=== PATIENT | female | born 1950 | race Caucasian/White ===

== ENCOUNTER 2017-06-09 03:24 | Emergency (ER) | payer SELFPAY ==
[~2017-06-09] VITALS: Ht 162.6 cm; Wt 70.0 kg
[~2017-06-09 03:24] MED LIST: ACYC-1 PO; BC FPOW12; CITA-48 PO; LEVO.025 PO; LISI2.5T3 PO; METHO500 PO; RANI150T PO; ZOCO40TA PO
[2017-06-09 03:43] VITALS: BP 137/72; PULSE 77; RESP 18; TEMP 97.7; O2SAT 98
== END 2017-06-09 04:15 | disposition left against medical advice (07) ==
LOC: NEPD 03:24
DX: Z53.21 Procedure and treatment not carried out due to patient leaving prior to being seen by health care provider (principal)
CPT/HCPCS: 99281

== ENCOUNTER 2017-10-21 18:18 | Inpatient (IN) ==
[2017-10-21] MEDS ORDERED: Sod Chloride 0.9% Inj 1,000 ML IV.SIG ONE (18:29)
--- NOTE | 2017-10-21 18:34 | ED ---
HPI General Chief complaint: GI Bleed Stated complaint: GI bleed Time Seen by Provider: 10/21/17 18:21 History of Present Illness HPI narrative: 67-year-old female presents via EMS for evaluation of GI bleed. She reports that yesterday evening she developed black tarry stools with dark red streaks. She is also had 2 episodes of coffee-ground emesis as well as lower abdominal pain. The pain is sharp, constant, no aggravating relieving factors. Symptoms are moderate. Today she developed some dizziness and lightheadedness. She denies any history of GI bleed in the past. She does report that she takes Goody powder a few times a day in order to help with chronic pain. She also reports that she drinks alcohol regularly, today she drank 2 beers. She has no other complaints at this time. Related Data Home Medications Medication Instructions Recorded Confirmed Unable to Obtain Home Meds 10/21/17 10/21/17 Allergies Allergy/AdvReac Type Severity Reaction Status Date / Time diazepam AdvReac Severe Hallucinati Unverified 10/21/17 18:24 ons CODIENE Allergy Unknown Hallucinati Uncoded 10/21/17 18:24 ons Review of Systems Except as stated in HPI: all other systems reviewed are negative PMFSH Social History Social History Substance History: No History of Abuse Second Hand Smoke Exposure: No Smoking Status: Current every day smoker Tobacco Type: Cigarettes How Often Do You Have a Drink Containing Alcohol: 4 or more times a week Recent Travel in [facility] within the Last 8 Weeks: No Recent Out of Country Travel within the Last 8 Weeks: No Exam Narrative Exam Narrative: GENERAL: Well-developed well-nourished female no acute distress SKIN: Warm and dry. HEAD: Atraumatic. Normocephalic. EYES: Pupils equal and round. No scleral icterus. No injection or drainage. ENT: No nasal bleeding or discharge. Mucous membranes pink and moist. NECK: Trachea midline. No JVD. CARDIOVASCULAR: Regular rate and rhythm. No murmur appreciated. RESPIRATORY: No accessory muscle use. Clear to auscultation. Breath sounds equal bilaterally. GASTROINTESTINAL: Abdomen soft, tender to palpation in lower quadrant without guarding. Rectal examination reveals black red streaked stool which is Hemoccult positive. MUSCULOSKELETAL: No obvious deformities. No clubbing. No cyanosis. No edema. NEUROLOGICAL: Awake and alert. No obvious cranial nerve deficits. Motor grossly within normal limits. Normal speech. Procedures Hemaprompt Stool Procedural Steps Taken: specimen placed in appropriate test area, developer placed on specimen and control areas and controls appropriately positive and negative Hemaprompt Stool Result: positive Course Initial Documented Vital Signs Temperature 98.4 F 10/21/17 18:25 Pulse Rate 90 10/21/17 18:25 Respiratory Rate 18 10/21/17 18:25 Blood Pressure 146/69 H 10/21/17 18:25 Pulse Oximetry 93 L 10/21/17 18:25 Last Documented Vital Signs Temperature 97.7 F 10/22/17 06:02 Pulse Rate 75 10/22/17 06:02 Respiratory Rate 18 10/22/17 06:02 Blood Pressure 119/68 10/22/17 06:02 Pulse Oximetry 95 10/22/17 06:02 Medical Decision Making TALHA Attestation TALHA supervised visit: Yes Attestation: I, Dr. Chandler, have reviewed the advance practice practitioner's documentation and am in agreement, met with the patient face to face, made the diagnosis, and the medical decision making was done by me. *My assessment and Findings: Patient's abdomen is nontender on examination and benign. Workup was consistent with an acute GI bleed likely secondary to her recent salicylates as her LFTs are not grossly abnormal and her INR is she has been given Protonix and admitted to Dr. Smith, hospitalist on-call for further workup and management. Her hemoglobin is 8 which is an acute drop but she is hemodynamically stable that she has not been given blood products at this time. MDM Narrative Medical decision making narrative: The patient was placed on ECG monitoring pulse oximetry. Lab work, CT of the abdomen and pelvis have been ordered. The patient will be given IV fluids, Protonix. Hemoglobin is 8.4. CT abdomen pelvis reveals no acute abnormalities. At this point in time the plan will be to admit the patient for further treatment of GI bleed. She is agreeable. Differential Diagnosis Differential Diagnosis: Upper GI bleed, lower GI bleed, AV malformation, peptic ulcer disease, perforation, malignancy, critical anemia Lab Data Result diagrams: 10/22/17 01:23 10/22/17 01:23 Lab Results 10/21/17 10/21/17 10/21/17 Range/Units 18:32 18:32 18:32 WBC 5.5 (4.0-11.0) th/mm3 RBC 2.82 L (4.00-5.30) mil/mm3 Hgb 8.4 L (11.6-15.3) gm/dL Hct 25.0 L (35.0-46.0) % MCV 88.7 (80.0-100.0) fL MCH 29.7 (27.0-34.0) pg MCHC 33.5 (32.0-36.0) % RDW 19.2 H (11.6-17.2) % Plt Count 314 (150-450) th/mm3 MPV 7.6 (7.0-11.0) fL Prelim Diff (Auto) Neut % (Auto) 71.1 H (16.0-70.0) % Lymph % (Auto) 17.0 (9.0-44.0) % Dickenson % (Auto) 8.1 H (0.0-8.0) % Eos % (Auto) 2.4 (0.0-4.0) % Baso % (Auto) 1.4 (0.0-2.0) % Neut # (Auto) 3.9 (1.8-7.7) th/mm3 Lymph # (Auto) 0.9 L (1.0-4.8) th/mm3 Dickenson # (Auto) 0.4 (0.0-0.9) th/mm3 Eos # (Auto) 0.1 (0.0-0.4) th/mm3 Baso # (Auto) 0.1 (0.0-0.2) th/mm3 WBC Differential . Diff Scan Differential Comment Auto diff final Ovalocytes (None) PT 10.5 (9.8-11.6) sec INR 1.0 Ratio APTT 20.5 L (24.3-30.1) sec Sodium 138 (136-145) meq/L Potassium 3.9 (3.5-5.1) meq/L Chloride 107 (98-107) meq/L Carbon Dioxide 21.2 (21.0-32.0) meq/L Anion Gap 10 (5-15) meq/L BUN 23 H (7-18) mg/dL Creatinine 0.72 (0.50-1.00) mg/dL Estimated GFR 81 L (>89) mL/min POC Glucose (68-110) mg/dl Random Glucose 77 (74-106) mg/dL Calcium 8.6 (8.5-10.1) mg/dL Total Bilirubin Less than 0.1 L (0.2-1.0) mg/dL AST 14 L (15-37) U/L ALT 10 (10-53) U/L Alkaline Phosphatase 70 (45-117) U/L Total Protein 6.2 L (6.4-8.2) g/dL Albumin 2.8 L (3.4-5.0) g/dL Lipase 88 (73-393) U/L Serum Alcohol 12 H (0-5) mg/dL Blood Type Blood Type Recheck Antibody Screen MTS Gel Crossmatch 10/21/17 10/21/17 10/21/17 Range/Units 18:32 21:02 23:49 WBC (4.0-11.0) th/mm3 RBC (4.00-5.30) mil/mm3 Hgb 6.9 L* (11.6-15.3) gm/dL Hct 21.2 L (35.0-46.0) % MCV (80.0-100.0) fL MCH (27.0-34.0) pg MCHC (32.0-36.0) % RDW (11.6-17.2) % Plt Count (150-450) th/mm3 MPV (7.0-11.0) fL Prelim Diff (Auto) Neut % (Auto) (16.0-70.0) % Lymph % (Auto) (9.0-44.0) % Dickenson % (Auto) (0.0-8.0) % Eos % (Auto) (0.0-4.0) % Baso % (Auto) (0.0-2.0) % Neut # (Auto) (1.8-7.7) th/mm3 Lymph # (Auto) (1.0-4.8) th/mm3 Dickenson # (Auto) (0.0-0.9) th/mm3 Eos # (Auto) (0.0-0.4) th/mm3 Baso # (Auto) (0.0-0.2) th/mm3 WBC Differential Diff Scan Differential Comment Ovalocytes (None) PT (9.8-11.6) sec INR Ratio APTT (24.3-30.1) sec Sodium (136-145) meq/L Potassium (3.5-5.1) meq/L Chloride (98-107) meq/L Carbon Dioxide (21.0-32.0) meq/L Anion Gap (5-15) meq/L BUN (7-18) mg/dL Creatinine (0.50-1.00) mg/dL Estimated GFR (>89) mL/min POC Glucose 98 (68-110) mg/dl Random Glucose (74-106) mg/dL Calcium (8.5-10.1) mg/dL Total Bilirubin (0.2-1.0) mg/dL AST (15-37) U/L ALT (10-53) U/L Alkaline Phosphatase (45-117) U/L Total Protein (6.4-8.2) g/dL Albumin (3.4-5.0) g/dL Lipase (73-393) U/L Serum Alcohol (0-5) mg/dL Blood Type A Positive Blood Type Recheck Required Antibody Screen Negative MTS Gel Crossmatch 10/22/17 10/22/17 10/22/17 Range/Units 00:19 01:23 01:23 WBC 5.0 (4.0-11.0) th/mm3 RBC 2.33 L (4.00-5.30) mil/mm3 Hgb 6.8 L* (11.6-15.3) gm/dL Hct 20.6 L* (35.0-46.0) % MCV 88.6 (80.0-100.0) fL MCH 29.3 (27.0-34.0) pg MCHC 33.1 (32.0-36.0) % RDW 19.4 H (11.6-17.2) % Plt Count 268 (150-450) th/mm3 MPV 7.2 (7.0-11.0) fL Prelim Diff (Auto) Slide review pending Neut % (Auto) 61.8 (16.0-70.0) % Lymph % (Auto) 23.5 (9.0-44.0) % Dickenson % (Auto) 10.6 H (0.0-8.0) % Eos % (Auto) 3.1 (0.0-4.0) % Baso % (Auto) 1.0 (0.0-2.0) % Neut # (Auto) 3.1 (1.8-7.7) th/mm3 Lymph # (Auto) 1.2 (1.0-4.8) th/mm3 Dickenson # (Auto) 0.5 (0.0-0.9) th/mm3 Eos # (Auto) 0.2 (0.0-0.4) th/mm3 Baso # (Auto) 0.1 (0.0-0.2) th/mm3 WBC Differential . Diff Scan Auto diff confirmed Differential Comment . Ovalocytes 1+ H (None) PT (9.8-11.6) sec INR Ratio APTT (24.3-30.1) sec Sodium 141 (136-145) meq/L Potassium 4.1 (3.5-5.1) meq/L Chloride 112 H (98-107) meq/L Carbon Dioxide 22.9 (21.0-32.0) meq/L Anion Gap 6 (5-15) meq/L BUN 17 (7-18) mg/dL Creatinine 0.56 (0.50-1.00) mg/dL Estimated GFR Greater than 89 (>89) mL/min POC Glucose (68-110) mg/dl Random Glucose 74 (74-106) mg/dL Calcium 7.9 L (8.5-10.1) mg/dL Total Bilirubin 0.2 (0.2-1.0) mg/dL AST 11 L (15-37) U/L ALT 8 L (10-53) U/L Alkaline Phosphatase 60 (45-117) U/L Total Protein 5.1 L D (6.4-8.2) g/dL Albumin 2.4 L (3.4-5.0) g/dL Lipase (73-393) U/L Serum Alcohol (0-5) mg/dL Blood Type Blood Type Recheck Antibody Screen MTS Gel Crossmatch See Detail Imaging Data Radiologist's impression: Abdomen/Pelvis CT 10/21/17 18:29 CONCLUSION: 1. No obstruction, inflammatory changes or other acute abnormality seen within the abdomen or pelvis. 2. 11 mm nonspecific but statistically most likely benign hypodensity of the left hepatic lobe. If attempted definitive characterization is desired clinically, nonemergent MRI of the abdomen with and without contrast is suggested. 3. Dense atherosclerosis of the abdominal aorta. No aneurysm. 4. Chronic appearing severe compression fracture of the L1 vertebra. Discharge Plan Discharge Disposition Patient Disposition: 30 Still Patient Discharge Condition Condition: Stable Discharge Details Diagnosis: Acute GI bleeding Physicians Team ED Provider: Daysi Chandler ED Midlevel Provider: Damon Lomeli Primary Care Provider: UNKNOWN, Attending Provider: Jeff Dunlap Status ED Status: Left Department Discharge Information Discharge Date/Time: 10/21/17 23:53
[2017-10-21 18:52] LABS: Baso # (Auto) 0.1 th/mm3 (0.0-0.2); Baso % (Auto) 1.4 % (0.0-2.0); Eos # (Auto) 0.1 th/mm3 (0.0-0.4); Eos % (Auto) 2.4 % (0.0-4.0); Hemoglobin 8.4 gm/dL (11.6-15.3); Lymph # (Auto) 0.9 th/mm3 (1.0-4.8); Mean Corpuscular HGB Conc 33.5 % (32.0-36.0); Mean Corpuscular Hemoglobin 29.7 pg (27.0-34.0); Mean Corpuscular Volume 88.7 fL (80.0-100.0); Mean Platelet Volume 7.6 fL (7.0-11.0); Mono # (Auto) 0.4 th/mm3 (0.0-0.9); Mono % (Auto) 8.1 % (0.0-8.0); Neut # (Auto) 3.9 th/mm3 (1.8-7.7); Neut % (Auto) 71.1 % (16.0-70.0); Platelet Count 314 th/mm3 (150-450); Red Blood Count 2.82 mil/mm3 (4.00-5.30); Red Cell Distribution Width 19.2 % (11.6-17.2); White Blood Count 5.5 th/mm3 (4.0-11.0)
[2017-10-21] MEDS ORDERED: Pantoprazole Inj 80 MG in Sodium Chlor 0.9% Inj 100 ML IV.CONT SCH (19:00)
[2017-10-21 19:05] LABS: Activated Partial Thrombo Time 20.5 sec (24.3-30.1); Prothrombin Time 10.5 sec (9.8-11.6)
[2017-10-21 19:10] LABS: Alanine Aminotransferase 10 U/L (10-53); Alkaline Phosphatase 70 U/L (45-117); Total Protein 6.2 g/dL (6.4-8.2)
[2017-10-21 19:17] LABS: Albumin 2.8 g/dL (3.4-5.0); Anion Gap 10 meq/L (5-15); Aspartate Aminotransferase 14 U/L (15-37); Blood Urea Nitrogen 23 mg/dL (7-18); Calcium 8.6 mg/dL (8.5-10.1); Carbon Dioxide 21.2 meq/L (21.0-32.0); Chloride 107 meq/L (98-107); Glomerular Filtration Rate 81 mL/min (>89); Glucose,Random 77 mg/dL (74-106); Lipase 88 U/L (73-393); Potassium 3.9 meq/L (3.5-5.1); Sodium 138 meq/L (136-145)
[2017-10-21] MEDS ORDERED: Pantoprazole Inj 80 MG in Sodium Chlor 0.9% Inj 50 ML IV.SIG ONE (19:20)
[2017-10-21 19:23] LABS: Alcohol 12 mg/dL (0-5)
--- NOTE | 2017-10-21 19:52 | CT ---
EXAM DATE: 10/21/2017 7:44 PM EDT AGE/SEX: 67 years / Female INDICATIONS: Low abdominal pain with blood in stool and coffee ground emesis. CLINICAL DATA: This is the patient's initial encounter. Patient reports that signs and symptoms have been present for 2 days and indicates a pain score of 7/10. MEDICAL/SURGICAL HISTORY: Chronic obstructive pulmonary disease. Hypertension. Hypothyroidism . None. ORAL CONTRAST: No oral contrast ingested. RADIATION DOSE: 6.53 CTDI (mGy) COMPARISON: [facility] – [place] [facility] AP/LAT/SW (3VW), 05/22/2011. . TECHNIQUE: Multiple contiguous axial images were obtained through the abdomen and pelvis following b olus infusion of 70 ml Omnipaque 350 (iohexol) nonionic water-soluble contrast as a single exam dos e. No oral contrast ingested. Using automated exposure control and adjustment of the mA and/or kV ac cording to patient size, radiation dose was kept as low as reasonably achievable to obtain optimal di agnostic quality images. DICOM format image data is available electronically for review and comparis on. FINDINGS: There is an 11 mm hepatic hypodensity, lateral segment of the left hepatic lobe. Liver otherwise appe ars normal. CT appearance of the gallbladder within normal limits. Spleen, pancreas, adrenal glands and kidneys are all within normal limits. No obstruction or acute inflammatory changes are seen of the gastrointestinal tract. No free fluid or free air. No lymphadenopathy. There is dense atherosclerosis of the abdominal aorta. No aneurysm. Visualized lung bases are free of infiltrate and effusion. No acute bony abnormality demonstrated. Degenerative changes are seen of the spine. There is a chroni c appearing L1 compression fracture. CONCLUSION: 1. No obstruction, inflammatory changes or other acute abnormality seen within the abdomen or pelvis . 2. 11 mm nonspecific but statistically most likely benign hypodensity of the left hepatic lobe. If a ttempted definitive characterization is desired clinically, nonemergent MRI of the abdomen with and w ithout contrast is suggested. 3. Dense atherosclerosis of the abdominal aorta. No aneurysm. 4. Chronic appearing severe compression fracture of the L1 vertebra. Electronically signed by: Levy Peralta MD 10/21/2017 7:51 PM EDT
[2017-10-21] MEDS ORDERED: Haloperidol Inj 5 MG/ML Ampul IV.PUSH PRN (20:11)
[2017-10-21] MEDS ORDERED: LORazepam 1 MG Tablet PO PRN (20:11)
[2017-10-21] MEDS ORDERED: Bisacodyl 10 MG Supp RECTAL PRN (20:13)
--- NOTE | 2017-10-21 20:15 | P.HPIM ---
History of Present Illness Primary Care Physician: UNKNOWN History of Present Illness: This is a 67-year-old female with a PMH of Alcohol Abuse and Tobacco Abuse who presented to the ER with complaints of dark stool x2 days in addition to few episodes of coffee-brown emesis. Also reports c/o abdominal pain, lower abdomen , intermittent, cramping, 8/10, non-radiating. Has been taking Goody powder several times a day for c/o pain. No h/o GI Bleed in the past. Admits to daily drinking 6pck Joseph Light daily, had 2 beers today. On arrival, BP 146/69, HR 83, O2 sat 100% on RA, Afebrile. Hemoglobin 8.4, no previous labs for comparison. INR 1.0. Chemistry essentially unremarkable except for BUN 23. Alcohol 12. Hemoccult + on exam. S/p Protonix gtt. CT Abd/Pelvis w/ no acute abnormality, 11mm nonspecific lesion left hepatic lobe likely benign, nonemergent MRI abdomen, chronic severe compression fx L1. - Diagnosis (1) GI bleed (2) Anemia (3) Alcohol abuse Inpatient Certification: I certify that the inpatient services were ordered in accordance with Medicare regulations governing the order. This includes certification that hospital inpatient services are reasonable and necessary and in the case of services not specified as inpatient-only under 42 CFR 419.22(n), that they are appropriately provided as inpatient services in accordance to with the 2-midnight benchmark under 43 CFR 412.3(e) Estimated Total Length of Stay (Days): 2 Plans for Post Hospital Care: Not yet determined Review of Systems PAST FAMILY HISTORY: Reviewed. No h/o DM or CAD All other systems reviewed negative except as stated in HPI PMFSH - History History Provided By: Patient - Medical History Medical History: Medical History (Last Updated 10/21/17 @ 18:28 by Delisa Tabares RN) Alcoholism COPD (chronic obstructive pulmonary disease) Hypertension Hypothyroid - Tobacco History Second Hand Smoke Exposure: No Tobacco Use In Past 30 Days: Yes Smoking Status: Current every day smoker Tobacco Type: Cigarettes - Alcohol History How Often Do You Have a Drink Containing Alcohol: 4 or more times a week - Substance Use History Substance History: No History of Abuse - Travel History Recent Travel in the [place] Within the Last 8 Weeks: No Recent Travel Out of the Country Within the Last 8 Weeks: No - Immunization History Tetanus Immunization: <5 Years Hx Influenza Vaccine This Season: No Medications and Allergies Active Medications: Active Medications Pantoprazole Sodium 80 mg/ (Sodium Chloride) 100 mls @ 10 mls/hr IV.CONT Q10H LILA Sodium Chloride (Ns Flush) 2 ml IV.FLUSH PRN PRN PRN Reason: FLUSH AFTER USING IV ACCESS Allergies Allergy/AdvReac Type Severity Reaction Status Date / Time diazepam AdvReac Severe Hallucinati Unverified 10/21/17 18:24 ons CODIENE Allergy Unknown Hallucinati Uncoded 10/21/17 18:24 ons Home Medications Medication Instructions Recorded Confirmed Type Unable to Obtain Home Meds 10/21/17 10/21/17 History Exam Vital signs: Vital Signs 10/21/17 18:25 10/21/17 18:32 10/21/17 19:28 Temperature 98.4 F 98.4 F Pulse Rate 90 83 86 Respiratory Rate 18 16 16 Blood Pressure 146/69 H 146/69 H 116/77 Pulse Oximetry 93 L 100 100 Intake & Output 10/21/17 10/21/17 10/22/17 06:59 18:59 06:59 Weight 65.771 kg Narrative: PE: GENERAL: Middle-aged female in no acute distress. HEENT: PERRLA, EOMI. No scleral icterus or conjunctival pallor. No lid lag or facial droop. CARDIOVASCULAR: Regular rate and rhythm. No obvious murmurs to auscultation. No chest tenderness to palpation. RESPIRATORY: No obvious rhonchi or wheezing. Clear to auscultation. Breath sounds equal bilaterally. GASTROINTESTINAL: Abdomen soft, lower abdominal tenderness to palpation, nondistended. BS normal. MUSCULOSKELETAL: Extremities without clubbing, cyanosis, or edema. No obvious deformities. NEUROLOGICAL: Awake, alert and oriented x4. No focal neurologic deficits. Moving both upper and lower extremities spontaneously. Results - Labs CBC & Chem 7: 10/21/17 18:32 10/21/17 18:32 Labs: Short CBC 10/21/17 Range/Units 18:32 WBC 5.5 (4.0-11.0) th/mm3 Hgb 8.4 L (11.6-15.3) gm/dL Hct 25.0 L (35.0-46.0) % Plt Count 314 (150-450) th/mm3 BMP 10/21/17 18:32 Sodium 138 Potassium 3.9 Chloride 107 Carbon Dioxide 21.2 BUN 23 H Creatinine 0.72 Calcium 8.6 Liver Function 10/21/17 Range/Units 18:32 Total Bilirubin Less than 0.1 L (0.2-1.0) mg/dL AST 14 L (15-37) U/L ALT 10 (10-53) U/L Alkaline Phosphatase 70 (45-117) U/L Albumin 2.8 L (3.4-5.0) g/dL - Imaging Impressions Abdomen/Pelvis CT 10/21/17 18:29 CONCLUSION: 1. No obstruction, inflammatory changes or other acute abnormality seen within the abdomen or pelvis. 2. 11 mm nonspecific but statistically most likely benign hypodensity of the left hepatic lobe. If attempted definitive characterization is desired clinically, nonemergent MRI of the abdomen with and without contrast is suggested. 3. Dense atherosclerosis of the abdominal aorta. No aneurysm. 4. Chronic appearing severe compression fracture of the L1 vertebra. Caprini VTE Risk Assessment Caprini VTE Risk Assessment: No/Low Risk (score <= 1) VTE Pharmacological Exception Reason: Active bleeding Caprini Risk Assessment Model: Point Value = 1 Point Value = 2 Point Value = 3 Point Value = 5 Age 41-60 Minor surgery BMI > 25 kg/m2 Swollen legs Varicose veins or History of unexplained or recurrent spontaneous Oral contraceptives or hormone replacement Sepsis (< 1 month) Serious lung disease, including pneumonia (< 1 month) Abnormal pulmonary function Acute myocardial infarction Congestive heart failure (< 1 month) History of inflammatory bowel disease Medical patient at bed rest Age 61-74 Arthroscopic surgery Major open surgery (> 45 min) Laparoscopic surgery (> 45 min) Malignancy Confined to bed (> 72 hours) Immobilizing plaster cast Central venous access Age >= 75 History of VTE Family history of VTE Factor V Leiden Prothrombin [id number] Lupus anticoagulant Anticardiolipin antibodies Elevated serum homocysteine Heparin-induced thrombocytopenia Other congenital or acquired thrombophilia Stroke (< 1 month) Elective arthroplasty Hip, pelvis, or leg fracture Acute spinal cord injury (< 1 month) Prophylaxis Regimen: Total Risk Factor Score Risk Level Prophylaxis Regimen 0-1 Low Early ambulation 2 Moderate Order ONE of the following: *Sequential Compression Device (SCD) *Heparin 5000 units SQ BID 3-4 Higher Order ONE of the following medications: *Heparin 5000 units SQ TID *Enoxaparin/Lovenox 40 mg SQ daily (WT < 150 kg, CrCl > 30 mL/min) *Enoxaparin/Lovenox 30 mg SQ daily (WT < 150 kg, CrCl > 10-29 mL/min) *Enoxaparin/Lovenox 30 mg SQ BID (WT < 150 kg, CrCl > 30 mL/min) AND/OR *Sequential Compression Device (SCD) 5 or more Highest Order ONE of the following medications: *Heparin 5000 units SQ TID (Preferred with Epidurals) *Enoxaparin/Lovenox 40 mg SQ daily (WT < 150 kg, CrCl > 30 mL/min) *Enoxaparin/Lovenox 30 mg SQ daily (WT < 150 kg, CrCl > 10-29 mL/min) *Enoxaparin/Lovenox 30 mg SQ BID (WT < 150 kg, CrCl > 30 mL/min) AND *Sequential Compression Device (SCD) Assessment and Plan - Assessment (1) GI bleed Code(s): K92.2 - Gastrointestinal hemorrhage, unspecified Status: Acute (2) Anemia Code(s): D64.9 - Anemia, unspecified Status: Acute (3) Alcohol abuse Code(s): F10.10 - Alcohol abuse, uncomplicated Status: Acute - Plan A/P: 1. GI Bleed: black tarry stool in addition to hematemesis, likely due to combination of alcohol abuse and chronic/daily NSAID use. Protonix gtt, Consult GI for further evaluation/intervention. CT Abd/Pelvis w/ no acute findings, nonspecific liver lesion w/ recommendation for nonemergent MRI and chronic L1 compression fracture, images reviewed. 2. Anemia: secondary to above, Hgb 8.9, no previous labs for comparison however presumably significantly decreased from baseline, in light of multiple episodes of hematemesis and dark stool will monitor closely. Type & Screen. Repeat Hgb/Hct, transfuse as needed for worsening anemia. 3. Alcohol Abuse: Daily. Chronic. Drinks 6pck Joseph Light daily, more during football season. High risk for withdrawal, Seizure Precautions, MVT/Thiamine/ Folate replacement, CIWA 4. DVT Prophylaxis: Pharmacologic contraindication due to GI Bleed 5. Social work for d/c planning as needed 6. Case discussed w/ ER physician at length, labs/records/imaging reviewed by me
[2017-10-21] MEDS: Pantoprazole Inj 80 MG in Sodium Chlor 0.9% Inj 100 ML IV.CONT SCH (20:20)
[2017-10-21] MEDS: Senna/Docusate Sodium 8.6/50 MG Tablet PO SCH (20:28)
[2017-10-21] MEDS: Sod Chloride 0.9% Inj 1,000 ML IV.CONT SCH (20:28)
[2017-10-21] MEDS: Morphine Inj 4 MG/ML Vial IV.PUSH PRN (22:01)
[2017-10-22] LABS: Hematocrit 21.2 % (35.0-46.0); Hemoglobin 6.9 gm/dL (11.6-15.3)
[2017-10-22] MEDS ORDERED: Sodium Chlor 0.9% Inj 250 ML IV.SIG SCH (01:00)
[2017-10-22 01:35] LABS: Baso # (Auto) 0.1 th/mm3 (0.0-0.2); Eos # (Auto) 0.2 th/mm3 (0.0-0.4); Eos % (Auto) 3.1 % (0.0-4.0); Hemoglobin 6.8 gm/dL (11.6-15.3); Lymph # (Auto) 1.2 th/mm3 (1.0-4.8); Lymph % (Auto) 23.5 % (9.0-44.0); Mean Corpuscular HGB Conc 33.1 % (32.0-36.0); Mean Corpuscular Hemoglobin 29.3 pg (27.0-34.0); Mean Corpuscular Volume 88.6 fL (80.0-100.0); Mean Platelet Volume 7.2 fL (7.0-11.0); Mono # (Auto) 0.5 th/mm3 (0.0-0.9); Mono % (Auto) 10.6 % (0.0-8.0); Neut # (Auto) 3.1 th/mm3 (1.8-7.7); Neut % (Auto) 61.8 % (16.0-70.0); Platelet Count 268 th/mm3 (150-450); Red Blood Count 2.33 mil/mm3 (4.00-5.30); Red Cell Distribution Width 19.4 % (11.6-17.2)
[2017-10-22 01:41] LABS: Hematocrit 20.6 % (35.0-46.0)
[2017-10-22 01:48] LABS: Alanine Aminotransferase 8 U/L (10-53); Albumin 2.4 g/dL (3.4-5.0); Anion Gap 6 meq/L (5-15); Aspartate Aminotransferase 11 U/L (15-37); Blood Urea Nitrogen 17 mg/dL (7-18); Calcium 7.9 mg/dL (8.5-10.1); Carbon Dioxide 22.9 meq/L (21.0-32.0); Chloride 112 meq/L (98-107); Glomerular Filtration Rate Greater Than 89 mL/min (>89); Glucose,Random 74 mg/dL (74-106); Potassium 4.1 meq/L (3.5-5.1); Sodium 141 meq/L (136-145)
[2017-10-22 01:50] LABS: Alkaline Phosphatase 60 U/L (45-117); Total Protein 5.1 g/dL (6.4-8.2)
[2017-10-22 02:08] LABS: Ovalocytes 1+
[2017-10-22] MEDS: Pantoprazole Inj 80 MG in Sodium Chlor 0.9% Inj 100 ML IV.CONT SCH (06:12)
[2017-10-22] MEDS: Sod Chloride 0.9% Inj 1,000 ML IV.CONT SCH ×2 (06:12→20:45)
--- NOTE | 2017-10-22 09:57 | P.PN ---
Subjective Interval history: F/u GIB. No further bleeding. States she has generalized pain and sciatica. Aware not to take NSAIDs. Physical Exam Vital signs: Vital Signs 10/21/17 18:25 10/21/17 18:32 10/21/17 19:28 Temperature 98.4 F 98.4 F Pulse Rate 90 83 86 Respiratory Rate 18 16 16 Blood Pressure 146/69 H 146/69 H 116/77 Pulse Oximetry 93 L 100 100 10/21/17 20:13 10/21/17 20:25 10/21/17 21:03 Temperature Pulse Rate 79 85 Respiratory Rate 16 Blood Pressure 150/88 H Pulse Oximetry 100 98 10/21/17 21:35 10/22/17 02:51 10/22/17 04:00 Temperature 98.1 F 97.8 F Pulse Rate 87 78 79 Respiratory Rate 18 18 18 Blood Pressure 159/70 H 109/54 L 104/57 L Pulse Oximetry 100 96 10/22/17 06:02 10/22/17 08:00 Temperature 97.7 F 98.4 F Pulse Rate 75 78 Respiratory Rate 18 19 Blood Pressure 119/68 118/57 L Pulse Oximetry 95 95 Intake & Output 10/21/17 10/22/17 10/22/17 18:59 06:59 18:59 Intake Total 1100 / 1100 0 / 0 Output Total 300 / 300 Balance 800 / 800 0 / 0 Weight 65.771 kg 64.2 kg Intake: IV 1100 / 1100 Protonix Inj 80 MG In NS Inj 100 / 100 100 ML @ 10 mls/hr IV.CONT Q10H [facility] Rx#:[id number] NS Inj 1,000 ML @ 100 mls/hr IV 1000 / 1000 .CONT .Q10H [facility] Rx#:[id number] Intake (Blood Product) Amt 0 / 0 0 / 0 Rbc As-3 Leukoreduced Unit 0 / 0 0 / 0 [id number] Output: Urine 300 / 300 Other: # Voids 1 Narrative: GENERAL: Middle-aged female in no acute distress. CARDIOVASCULAR: Regular rate and rhythm. No obvious murmurs to auscultation. No chest tenderness to palpation. RESPIRATORY: No obvious rhonchi or wheezing. Clear to auscultation. Breath sounds equal bilaterally. GASTROINTESTINAL: Abdomen soft, lower abdominal tenderness to palpation, nondistended. BS normal. MUSCULOSKELETAL: Extremities without clubbing, cyanosis, or edema. No obvious deformities. NEUROLOGICAL: Awake, alert and oriented x4. No focal neurologic deficits. Moving both upper and lower extremities spontaneously. Results - Labs CBC & Chem 7: 10/22/17 13:55 10/22/17 13:55 Laboratory Results - last 24 hr 10/21/17 10/21/17 10/21/17 18:32 18:32 18:32 WBC 5.5 RBC 2.82 L Hgb 8.4 L Hct 25.0 L MCV 88.7 MCH 29.7 MCHC 33.5 RDW 19.2 H Plt Count 314 MPV 7.6 Prelim Diff (Auto) Neut % (Auto) 71.1 H Lymph % (Auto) 17.0 [place] % (Auto) 8.1 H Eos % (Auto) 2.4 Baso % (Auto) 1.4 Neut # (Auto) 3.9 Lymph # (Auto) 0.9 L [place] # (Auto) 0.4 Eos # (Auto) 0.1 Baso # (Auto) 0.1 WBC Differential . Diff Scan Differential Comment Auto diff final Ovalocytes PT 10.5 INR 1.0 APTT 20.5 L Sodium 138 Potassium 3.9 Chloride 107 Carbon Dioxide 21.2 Anion Gap 10 BUN 23 H Creatinine 0.72 Estimated GFR 81 L POC Glucose Random Glucose 77 Calcium 8.6 Total Bilirubin Less than 0.1 L AST 14 L ALT 10 Alkaline Phosphatase 70 Total Protein 6.2 L Albumin 2.8 L Lipase 88 Serum Alcohol 12 H Blood Type Blood Type Recheck Antibody Screen MTS Gel Crossmatch 10/21/17 10/21/17 10/21/17 18:32 21:02 23:49 WBC RBC Hgb 6.9 L* Hct 21.2 L MCV MCH MCHC RDW Plt Count MPV Prelim Diff (Auto) Neut % (Auto) Lymph % (Auto) [place] % (Auto) Eos % (Auto) Baso % (Auto) Neut # (Auto) Lymph # (Auto) [place] # (Auto) Eos # (Auto) Baso # (Auto) WBC Differential Diff Scan Differential Comment Ovalocytes PT INR APTT Sodium Potassium Chloride Carbon Dioxide Anion Gap BUN Creatinine Estimated GFR POC Glucose 98 Random Glucose Calcium Total Bilirubin AST ALT Alkaline Phosphatase Total Protein Albumin Lipase Serum Alcohol Blood Type A Positive Blood Type Recheck Required Antibody Screen Negative MTS Gel Crossmatch 0810/22/17 10/22/17 00:19 01:23 01:23 WBC 5.0 RBC 2.33 L Hgb 6.8 L* Hct 20.6 L* MCV 88.6 MCH 29.3 MCHC 33.1 RDW 19.4 H Plt Count 268 MPV 7.2 Prelim Diff (Auto) Slide review pending Neut % (Auto) 61.8 Lymph % (Auto) 23.5 [place] % (Auto) 10.6 H Eos % (Auto) 3.1 Baso % (Auto) 1.0 Neut # (Auto) 3.1 Lymph # (Auto) 1.2 [place] # (Auto) 0.5 Eos # (Auto) 0.2 Baso # (Auto) 0.1 WBC Differential . Diff Scan Auto diff confirmed Differential Comment . Ovalocytes 1+ H PT INR APTT Sodium 141 Potassium 4.1 Chloride 112 H Carbon Dioxide 22.9 Anion Gap 6 BUN 17 Creatinine 0.56 Estimated GFR Greater than 89 POC Glucose Random Glucose 74 Calcium 7.9 L Total Bilirubin 0.2 AST 11 L ALT 8 L Alkaline Phosphatase 60 Total Protein 5.1 L D Albumin 2.4 L Lipase Serum Alcohol Blood Type Blood Type Recheck Antibody Screen MTS Gel Crossmatch See Detail - Imaging Impressions Abdomen/Pelvis CT 10/21/17 18:29 CONCLUSION: 1. No obstruction, inflammatory changes or other acute abnormality seen within the abdomen or pelvis. 2. 11 mm nonspecific but statistically most likely benign hypodensity of the left hepatic lobe. If attempted definitive characterization is desired clinically, nonemergent MRI of the abdomen with and without contrast is suggested. 3. Dense atherosclerosis of the abdominal aorta. No aneurysm. 4. Chronic appearing severe compression fracture of the L1 vertebra. - Procedures EGD Assessment and Plan - Assessment (1) GI bleed Code(s): K92.2 - Gastrointestinal hemorrhage, unspecified Status: Acute (2) Anemia Code(s): D64.9 - Anemia, unspecified Status: Acute (3) Alcohol abuse Code(s): F10.10 - Alcohol abuse, uncomplicated Status: Acute - Plan 1. GI Bleed: black tarry stool in addition to hematemesis, likely due to combination of alcohol abuse and chronic/daily NSAID use. Protonix gtt, Consult GI for further evaluation/intervention. CT Abd/Pelvis w/ no acute findings, nonspecific liver lesion w/ recommendation for nonemergent MRI and chronic L1 compression fracture, images reviewed. 2. Anemia: secondary to above, Hgb 8.9, no previous labs for comparison however presumably significantly decreased from baseline, in light of multiple episodes of hematemesis and dark stool will monitor closely. Type & Screen. Repeat Hgb/Hct, transfuse as needed for worsening anemia. 3. Alcohol Abuse: Daily. Chronic. Drinks 6pck [place] daily, more during football season. High risk for withdrawal, Seizure Precautions, MVT/Thiamine/ Folate replacement, CIWA 4. DVT Prophylaxis: Pharmacologic contraindication due to GI Bleed
--- NOTE | 2017-10-22 10:13 | P.CONGI ---
History of Present Illness Consult date: 10/22/17 Consult reason: Upper GIB Chief complaint: GI bleed History of Present Illness: This is a 67 yo F with medical history significant for ETOH abuse who presented to the ER yesterday with complaints of abdominal pain, coffee ground emesis and black, tarry stools. Pt states symptoms began two nights ago. Pain is located in her lower abdomen, constant, described as dull sharp and aching. States nothing makes the pain better or worse. Also complaining of multiple black, tarry stools since two nights ago but has not had any since admission. Reports one episode of coffee ground emesis. Denies history of GIB. Has never had EGD or colonoscopy. Admits to daily alcohol, drinks a 6 pack of beer daily. Denies smoking and illicit drug use. Of note, pt was was previously following pain management but stopped this months ago and is now drinking alcohol and taking Goody powder daily for months. <Cherie Veliz - Last Filed: 10/22/17 10:04> Review of Systems Gastrointestinal: Reports abdominal pain, Reports black, tarry stools, Reports loose stools, Reports nausea, Reports vomiting Comments: coffee ground emesis <Cherie Veliz - Last Filed: 10/22/17 10:04> PMFSH - History History Provided By: Patient, Medical Record - Medical History Medical History: Medical History (Last Reviewed 10/21/17 @ 21:55 by Kirti Luu RN) Alcoholism COPD (chronic obstructive pulmonary disease) Hypertension Hypothyroid - Tobacco History Second Hand Smoke Exposure: No Tobacco Use In Past 30 Days: Yes Smoking Status: Current every day smoker Tobacco Type: Cigarettes - Alcohol History How Often Do You Have a Drink Containing Alcohol: 4 or more times a week - Substance Use History Substance History: No History of Abuse - Travel History Recent Travel in the [place] Within the Last 8 Weeks: No Recent Travel Out of the Country Within the Last 8 Weeks: No - Immunization History Tetanus Immunization: <5 Years Hx Influenza Vaccine This Season: No <Cherie Veliz - Last Filed: 10/22/17 10:04> - Medical History Medical History: Medical History (Last Reviewed 10/21/17 @ 21:55 by Kirti Luu RN) Alcoholism COPD (chronic obstructive pulmonary disease) Hypertension Hypothyroid <Breanna Jennings - Last Filed: 10/22/17 12:23> Medications and Allergies Active Medications: Active Medications Al Hydroxide/Mg Hydroxide (Milk Of Magnesia Liq) 30 ml PO Q12H PRN PRN Reason: Mild Constipation Albuterol (Duoneb Neb (Prn)) 1 ampul NEB Q4HR NEB PRN PRN Reason: SOB/WHEEZING Bisacodyl (Dulcolax Supp) 10 mg RECTAL DAILY PRN PRN Reason: SEVERE CONSITIPATION Flumazenil (Romazecon Inj) 0.2 mg IV.PUSH Q1M PRN PRN Reason: OVERSEDATION Folic Acid (Folic Acid) 1 mg PO DAILY [facility] Stop: 10/27/17 08:59 Haloperidol Lactate (Haldol Inj) 1 mg IV.PUSH Q15M PRN PRN Reason: for severe agitation Pantoprazole Sodium 80 mg/ (Sodium Chloride) 100 mls @ 10 mls/hr IV.CONT Q10H [facility] Last Admin: 10/22/17 06:12 Dose: 10 mls/hr Sodium Chloride (Ns Inj) 1,000 mls @ 100 mls/hr IV.CONT .Q10H [facility] Last Admin: 10/22/17 06:12 Dose: 100 mls/hr Sodium Chloride (Ns Inj) 250 mls @ 15 mls/hr IV.SIG ONCE [facility] Stop: 10/22/17 17:39 Lactulose (Lactulose Liq) 30 ml PO DAILY PRN PRN Reason: SEVERE CONSITIPATION Lorazepam (Ativan) 1 mg PO Q4H PRN PRN Reason: for CIWA 8-10 Lorazepam (Ativan) 2 mg PO Q2H PRN PRN Reason: for CIWA 11-14 Lorazepam (Ativan Inj) 2 mg IV.PUSH Q2H PRN PRN Reason: for CIWA 11-14 Lorazepam (Ativan Inj) 2 mg IV.PUSH Q1H PRN PRN Reason: for CIWA 15-20 Lorazepam (Ativan Inj) 2 mg IV.PUSH Q15M PRN PRN Reason: for CIWA > 20 Lorazepam (Ativan Inj) 1 mg IV.PUSH Q4H PRN PRN Reason: for CIWA 8-10 Morphine Sulfate (Morphine Inj) 2 mg IV.PUSH Q4H PRN PRN Reason: PAIN 6-10 Last Admin: 10/21/17 22:01 Dose: 2 mg Multivitamins/Minerals (Theragran-M) 1 tab PO DAILY [facility] Stop: 10/27/17 08:59 Ondansetron HCl (Zofran Inj) 4 mg IV.PUSH Q6H PRN PRN Reason: NAUSEA OR VOMITING Senna/Docusate Sodium (Fernanda-Colace) 1 tab PO BID [facility] Last Admin: 10/21/17 20:28 Dose: Not Given Sennosides (Senokot) 17.2 mg PO Q12H PRN PRN Reason: Moderate Constipation Sodium Chloride (Ns Flush) 2 ml IV.FLUSH PRN PRN PRN Reason: FLUSH AFTER USING IV ACCESS Thiamine HCl (Vitamin B1) 100 mg PO DAILY [facility] <Cherie Veliz - Last Filed: 10/22/17 10:04> Active Medications: Active Medications Al Hydroxide/Mg Hydroxide (Milk Of Magnesia Liq) 30 ml PO Q12H PRN PRN Reason: Mild Constipation Albuterol (Duoneb Neb (Prn)) 1 ampul NEB Q4HR NEB PRN PRN Reason: SOB/WHEEZING Bisacodyl (Dulcolax Supp) 10 mg RECTAL DAILY PRN PRN Reason: SEVERE CONSITIPATION Flumazenil (Romazecon Inj) 0.2 mg IV.PUSH Q1M PRN PRN Reason: OVERSEDATION Folic Acid (Folic Acid) 1 mg PO DAILY [facility] Stop: 10/27/17 08:59 Haloperidol Lactate (Haldol Inj) 1 mg IV.PUSH Q15M PRN PRN Reason: for severe agitation Pantoprazole Sodium 80 mg/ (Sodium Chloride) 100 mls @ 10 mls/hr IV.CONT Q10H [facility] Last Admin: 10/22/17 06:12 Dose: 10 mls/hr Sodium Chloride (Ns Inj) 1,000 mls @ 100 mls/hr IV.CONT .Q10H [facility] Last Admin: 10/22/17 06:12 Dose: 100 mls/hr Sodium Chloride (Ns Inj) 250 mls @ 15 mls/hr IV.SIG ONCE [facility] Stop: 10/22/17 17:39 Lactulose (Lactulose Liq) 30 ml PO DAILY PRN PRN Reason: SEVERE CONSITIPATION Lorazepam (Ativan) 1 mg PO Q4H PRN PRN Reason: for CIWA 8-10 Lorazepam (Ativan) 2 mg PO Q2H PRN PRN Reason: for CIWA 11-14 Lorazepam (Ativan Inj) 2 mg IV.PUSH Q2H PRN PRN Reason: for CIWA 11-14 Lorazepam (Ativan Inj) 2 mg IV.PUSH Q1H PRN PRN Reason: for CIWA 15-20 Lorazepam (Ativan Inj) 2 mg IV.PUSH Q15M PRN PRN Reason: for CIWA > 20 Lorazepam (Ativan Inj) 1 mg IV.PUSH Q4H PRN PRN Reason: for CIWA 8-10 Morphine Sulfate (Morphine Inj) 2 mg IV.PUSH Q4H PRN PRN Reason: PAIN 6-10 Last Admin: 10/21/17 22:01 Dose: 2 mg Multivitamins/Minerals (Theragran-M) 1 tab PO DAILY [facility] Stop: 10/27/17 08:59 Ondansetron HCl (Zofran Inj) 4 mg IV.PUSH Q6H PRN PRN Reason: NAUSEA OR VOMITING Senna/Docusate Sodium (Fernanda-Colace) 1 tab PO BID [facility] Last Admin: 10/21/17 20:28 Dose: Not Given Sennosides (Senokot) 17.2 mg PO Q12H PRN PRN Reason: Moderate Constipation Sodium Chloride (Ns Flush) 2 ml IV.FLUSH PRN PRN PRN Reason: FLUSH AFTER USING IV ACCESS Thiamine HCl (Vitamin B1) 100 mg PO DAILY [facility] <Breanna Jennings - Last Filed: 10/22/17 12:23> Allergies Allergy/AdvReac Type Severity Reaction Status Date / Time diazepam AdvReac Severe Hallucinati Unverified 10/21/17 18:24 ons CODIENE Allergy Unknown Hallucinati Uncoded 10/21/17 18:24 ons Home Medications Medication Instructions Recorded Confirmed Type Unable to Obtain Home Meds 10/21/17 10/21/17 History Exam Vital signs: Vital Signs 10/21/17 18:25 10/21/17 18:32 10/21/17 19:28 Temperature 98.4 F 98.4 F Pulse Rate 90 83 86 Respiratory Rate 18 16 16 Blood Pressure 146/69 H 146/69 H 116/77 Pulse Oximetry 93 L 100 100 10/21/17 20:13 08/05/18 20:25 10/21/17 21:03 Temperature Pulse Rate 79 85 Respiratory Rate 16 Blood Pressure 150/88 H Pulse Oximetry 100 98 10/21/17 21:35 10/22/17 02:51 10/22/17 04:00 Temperature 98.1 F 97.8 F Pulse Rate 87 78 79 Respiratory Rate 18 18 18 Blood Pressure 159/70 H 109/54 L 104/57 L Pulse Oximetry 100 96 10/22/17 06:02 10/22/17 08:00 Temperature 97.7 F 98.4 F Pulse Rate 75 78 Respiratory Rate 18 19 Blood Pressure 119/68 118/57 L Pulse Oximetry 95 95 Intake & Output 10/21/17 10/22/17 10/22/17 18:59 06:59 18:59 Intake Total 1100 / 1100 0 / 0 Output Total 300 / 300 Balance 800 / 800 0 / 0 Weight 65.771 kg 64.2 kg Intake: IV 1100 / 1100 Protonix Inj 80 MG In NS Inj 100 / 100 100 ML @ 10 mls/hr IV.CONT Q10H [facility] Rx#:[id number] NS Inj 1,000 ML @ 100 mls/hr IV 1000 / 1000 .CONT .Q10H [facility] Rx#:[id number] Intake (Blood Product) Amt 0 / 0 0 / 0 Rbc As-3 Leukoreduced Unit 0 / 0 0 / 0 [id number] Output: Urine 300 / 300 Other: # Voids 1 - Constitutional no acute distress - Routine HEENT Exam Head: Present: normocephalic, atraumatic - Routine Respiratory Exam Absent: accessory muscle use - Routine Abdominal Exam Present: soft, normoactive bowel sounds, tenderness Comments: lower abdominal tenderness - Routine Skin Exam Present: dry, warm - Routine Neurological Exam Present: alert, oriented X3 <Cherie Veliz - Last Filed: 10/22/17 10:04> Vital signs: Vital Signs 10/21/17 18:25 10/21/17 18:32 10/21/17 19:28 Temperature 98.4 F 98.4 F Pulse Rate 90 83 86 Respiratory Rate 18 16 16 Blood Pressure 146/69 H 146/69 H 116/77 Pulse Oximetry 93 L 100 100 10/21/17 20:13 10/21/17 20:25 10/21/17 21:03 Temperature Pulse Rate 79 85 Respiratory Rate 16 Blood Pressure 150/88 H Pulse Oximetry 100 98 10/21/17 21:35 10/22/17 02:51 10/22/17 04:00 Temperature 98.1 F 97.8 F Pulse Rate 87 78 79 Respiratory Rate 18 18 18 Blood Pressure 159/70 H 109/54 L 104/57 L Pulse Oximetry 100 96 10/22/17 06:02 10/22/17 08:00 Temperature 97.7 F 98.4 F Pulse Rate 75 78 Respiratory Rate 18 19 Blood Pressure 119/68 118/57 L Pulse Oximetry 95 95 Intake & Output 10/21/17 10/22/17 10/22/17 18:59 06:59 18:59 Intake Total 1100 / 1100 1050 / 1050 Output Total 300 / 300 Balance 800 / 800 1050 / 1050 Weight 65.771 kg 64.2 kg Intake: IV 1100 / 1100 1050 / 1050 Protonix Inj 80 MG In NS Inj 100 / 100 100 ML @ 10 mls/hr IV.CONT Q10H [facility] Rx#:[id number] NS Inj 1,000 ML @ 100 mls/hr IV 1000 / 1000 .CONT .Q10H [facility] Rx#:[id number] Intake (Blood Product) Amt 0 / 0 0 / 0 Rbc As-3 Leukoreduced Unit 0 / 0 0 / 0 [id number] Output: Urine 300 / 300 Other: # Voids 1 <Breanna Jennings - Last Filed: 10/22/17 12:23> Results - Labs CBC & Chem 7: 10/22/17 01:23 10/22/17 01:23 Labs: Laboratory Results - last 24 hr 10/21/17 10/21/17 10/21/17 18:32 18:32 18:32 WBC 5.5 RBC 2.82 L Hgb 8.4 L Hct 25.0 L MCV 88.7 MCH 29.7 MCHC 33.5 RDW 19.2 H Plt Count 314 MPV 7.6 Prelim Diff (Auto) Neut % (Auto) 71.1 H Lymph % (Auto) 17.0 [place] % (Auto) 8.1 H Eos % (Auto) 2.4 Baso % (Auto) 1.4 Neut # (Auto) 3.9 Lymph # (Auto) 0.9 L [place] # (Auto) 0.4 Eos # (Auto) 0.1 Baso # (Auto) 0.1 WBC Differential . Diff Scan Differential Comment Auto diff final Ovalocytes PT 10.5 INR 1.0 APTT 20.5 L Sodium 138 Potassium 3.9 Chloride 107 Carbon Dioxide 21.2 Anion Gap 10 BUN 23 H Creatinine 0.72 Estimated GFR 81 L POC Glucose Random Glucose 77 Calcium 8.6 Total Bilirubin Less than 0.1 L AST 14 L ALT 10 Alkaline Phosphatase 70 Total Protein 6.2 L Albumin 2.8 L Lipase 88 Serum Alcohol 12 H Blood Type Blood Type Recheck Antibody Screen MTS Gel Crossmatch 10/21/17 10/21/17 10/21/17 18:32 21:02 23:49 WBC RBC Hgb 6.9 L* Hct 21.2 L MCV MCH MCHC RDW Plt Count MPV Prelim Diff (Auto) Neut % (Auto) Lymph % (Auto) [place] % (Auto) Eos % (Auto) Baso % (Auto) Neut # (Auto) Lymph # (Auto) [place] # (Auto) Eos # (Auto) Baso # (Auto) WBC Differential Diff Scan Differential Comment Ovalocytes PT INR APTT Sodium Potassium Chloride Carbon Dioxide Anion Gap BUN Creatinine Estimated GFR POC Glucose 98 Random Glucose Calcium Total Bilirubin AST ALT Alkaline Phosphatase Total Protein Albumin Lipase Serum Alcohol Blood Type A Positive Blood Type Recheck Required Antibody Screen Negative MTS Gel Crossmatch 10/22/17 10/22/17 10/22/17 00:19 01:23 01:23 WBC 5.0 RBC 2.33 L Hgb 6.8 L* Hct 20.6 L* MCV 88.6 MCH 29.3 MCHC 33.1 RDW 19.4 H Plt Count 268 MPV 7.2 Prelim Diff (Auto) Slide review pending Neut % (Auto) 61.8 Lymph % (Auto) 23.5 [place] % (Auto) 10.6 H Eos % (Auto) 3.1 Baso % (Auto) 1.0 Neut # (Auto) 3.1 Lymph # (Auto) 1.2 [place] # (Auto) 0.5 Eos # (Auto) 0.2 Baso # (Auto) 0.1 WBC Differential . Diff Scan Auto diff confirmed Differential Comment . Ovalocytes 1+ H PT INR APTT Sodium 141 Potassium 4.1 Chloride 112 H Carbon Dioxide 22.9 Anion Gap 6 BUN 17 Creatinine 0.56 Estimated GFR Greater than 89 POC Glucose Random Glucose 74 Calcium 7.9 L Total Bilirubin 0.2 AST 11 L ALT 8 L Alkaline Phosphatase 60 Total Protein 5.1 L D Albumin 2.4 L Lipase Serum Alcohol Blood Type Blood Type Recheck Antibody Screen MTS Gel Crossmatch See Detail - Imaging Impressions Abdomen/Pelvis CT 10/21/17 18:29 CONCLUSION: 1. No obstruction, inflammatory changes or other acute abnormality seen within the abdomen or pelvis. 2. 11 mm nonspecific but statistically most likely benign hypodensity of the left hepatic lobe. If attempted definitive characterization is desired clinically, nonemergent MRI of the abdomen with and without contrast is suggested. 3. Dense atherosclerosis of the abdominal aorta. No aneurysm. 4. Chronic appearing severe compression fracture of the L1 vertebra. <Cherie Veliz - Last Filed: 10/22/17 10:04> - Labs CBC & Chem 7: 10/22/17 01:23 10/22/17 01:23 Labs: Laboratory Results - last 24 hr 10/21/17 10/21/17 10/21/17 18:32 18:32 18:32 WBC 5.5 RBC 2.82 L Hgb 8.4 L Hct 25.0 L MCV 88.7 MCH 29.7 MCHC 33.5 RDW 19.2 H Plt Count 314 MPV 7.6 Prelim Diff (Auto) Neut % (Auto) 71.1 H Lymph % (Auto) 17.0 [place] % (Auto) 8.1 H Eos % (Auto) 2.4 Baso % (Auto) 1.4 Neut # (Auto) 3.9 Lymph # (Auto) 0.9 L [place] # (Auto) 0.4 Eos # (Auto) 0.1 Baso # (Auto) 0.1 WBC Differential . Diff Scan Differential Comment Auto diff final Ovalocytes PT 10.5 INR 1.0 APTT 20.5 L Sodium 138 Potassium 3.9 Chloride 107 Carbon Dioxide 21.2 Anion Gap 10 BUN 23 H Creatinine 0.72 Estimated GFR 81 L POC Glucose Random Glucose 77 Calcium 8.6 Total Bilirubin Less than 0.1 L AST 14 L ALT 10 Alkaline Phosphatase 70 Total Protein 6.2 L Albumin 2.8 L Lipase 88 Serum Alcohol 12 H Blood Type Blood Type Recheck Antibody Screen MTS Gel Crossmatch 10/21/17 10/21/17 10/21/17 18:32 21:02 23:49 WBC RBC Hgb 6.9 L* Hct 21.2 L MCV MCH MCHC RDW Plt Count MPV Prelim Diff (Auto) Neut % (Auto) Lymph % (Auto) [place] % (Auto) Eos % (Auto) Baso % (Auto) Neut # (Auto) Lymph # (Auto) [place] # (Auto) Eos # (Auto) Baso # (Auto) WBC Differential Diff Scan Differential Comment Ovalocytes PT INR APTT Sodium Potassium Chloride Carbon Dioxide Anion Gap BUN Creatinine Estimated GFR POC Glucose 98 Random Glucose Calcium Total Bilirubin AST ALT Alkaline Phosphatase Total Protein Albumin Lipase Serum Alcohol Blood Type A Positive Blood Type Recheck Required Antibody Screen Negative MTS Gel Crossmatch 10/22/17 10/22/17 10/22/17 00:19 01:23 01:23 WBC 5.0 RBC 2.33 L Hgb 6.8 L* Hct 20.6 L* MCV 88.6 MCH 29.3 MCHC 33.1 RDW 19.4 H Plt Count 268 MPV 7.2 Prelim Diff (Auto) Slide review pending Neut % (Auto) 61.8 Lymph % (Auto) 23.5 [place] % (Auto) 10.6 H Eos % (Auto) 3.1 Baso % (Auto) 1.0 Neut # (Auto) 3.1 Lymph # (Auto) 1.2 [place] # (Auto) 0.5 Eos # (Auto) 0.2 Baso # (Auto) 0.1 WBC Differential . Diff Scan Auto diff confirmed Differential Comment . Ovalocytes 1+ H PT INR APTT Sodium 141 Potassium 4.1 Chloride 112 H Carbon Dioxide 22.9 Anion Gap 6 BUN 17 Creatinine 0.56 Estimated GFR Greater than 89 POC Glucose Random Glucose 74 Calcium 7.9 L Total Bilirubin 0.2 AST 11 L ALT 8 L Alkaline Phosphatase 60 Total Protein 5.1 L D Albumin 2.4 L Lipase Serum Alcohol Blood Type Blood Type Recheck Antibody Screen MTS Gel Crossmatch See Detail - Imaging Impressions Abdomen/Pelvis CT 10/21/17 18:29 CONCLUSION: 1. No obstruction, inflammatory changes or other acute abnormality seen within the abdomen or pelvis. 2. 11 mm nonspecific but statistically most likely benign hypodensity of the left hepatic lobe. If attempted definitive characterization is desired clinically, nonemergent MRI of the abdomen with and without contrast is suggested. 3. Dense atherosclerosis of the abdominal aorta. No aneurysm. 4. Chronic appearing severe compression fracture of the L1 vertebra. <Breanna Jennings - Last Filed: 10/22/17 12:23> Assessment and Plan - Plan Assessment: - Upper GIB with ETOH abuse and daily Goody powder use H/H currently 6.8/20.6 Pt reports symptoms began two night ago with multiple black, tarry stools and one episode of coffee ground emesis. Drinks 6 pack of beer a day. Takes Goody Powder daily, previous followed by pain management but stopped this months ago. Denies history of GIB. Plan: EGD with possible band ligation Obtain consent NPO Protonix gtt Monitor H/H ETOH withdraw protocol Further recommendations to follow Pt has been seen and examined by myself and Dr. Jennings and this note is written on her behalf <Cherie Veliz - Last Filed: 10/22/17 10:04> - Plan seen, examined agree with above avoid NSAIDS, ETOH colonoscopy if agrees before discharge-at this time refusing risk, benefits of egd discussed transfuse prn <Breanna Jennings - Last Filed: 10/22/17 12:23>
[2017-10-22] MEDS ORDERED: Lidocaine PF 1% Inj 5 ML Syringe INFILTRATN ONE (12:00)
--- NOTE | 2017-10-22 12:29 | GIPROC ---
[employer] [address] [facility]. [facility] [place], [address] EGD PROCEDURE REPORT EXAM DATE: 10/22/2017 PATIENT NAME: Apoorva Cisneros MR #: [id number] BIRTHDATE: 1950 ATTENDING: Breanna Jennings MD ORDER #: [id number] BAG END SEWER: Sonia Graves and Justice Morgan STATUS: inpatient INDICATIONS: The patient is a 67 yr old female here for an EGD due to anemia, gi bleeding PROCEDURE PERFORMED: EGD w/ biopsy MEDICATIONS: None and Per Anesthesia. TOPICAL ANESTHETIC: none CONSENT: The patient understands the risks and benefits of the procedure and understands that these risks include, but are not limited to: sedation, allergic reaction, infection, perforation and/or bleeding. Alternative means of evaluation and treatment include, among others: physical exam, x-rays, and/or surgical intervention. The patient elects to proceed with this endoscopic procedure. medical equipment was checked for proper function. Hand hygiene and appropriate measures for infection prevention was taken. After the risks, benefits and alternatives of the procedure were thoroughly explained, Informed consent was verified, confirmed and timeout was successfully executed by the treatment team. The patient was anesthetized with topical anesthesia and the Phobiousax [id number] endoscope was introduced through the mouth and advanced to the second portion of the duodenum. Retroflexed views revealed a hiatal hernia The gastroscope was then slowly withdrawn and removed. Duodenitis second portion-biopsy gastritis antrum-biopsy/multiple superficial ulcers duodenla bulb ulcers, clean base-4 mm pyloric channel ulcer-1 cm-clean base esophagitis distal esophagus -biopsy. ADVERSE EVENTS: There were no complications. IMPRESSIONS: 1. Duodenitis second portion-biopsy gastritis antrum-biopsy/multiple superficial ulcers duodenla bulb ulcers, clean base-4 mm pyloric channel ulcer-1 cm-clean base esophagitis distal esophagus -biopsy 2. Retroflexed views revealed a hiatal hernia RECOMMENDATIONS: 1. Await biopsy results. Biopsy results will not be ready for 7-10 days. If you don't hear from us in two weeks, call our office for biopsy results. 2. Anti-reflux regimen 3. Continue PPI 4. Avoid NSAIDS 5. Full liquid diet advance as tolerated colonoscopy if agrees-at this time refusing PATIENT CONDITION: stable DISPOSITION: Inpatient REPEAT EXAM: Return 6 weeks EGD Breanna Jennings MD eSigned: Breanna Jennings MD 10/22/2017 12:29 PM cc: PATIENT NAME: Apoorva Cisneros MR#: [id number]
[2017-10-22] MEDS: Folic Acid 1 MG Tablet PO SCH (13:26)
[2017-10-22] MEDS: Senna/Docusate Sodium 8.6/50 MG Tablet PO SCH ×2 (13:26→20:37)
[2017-10-22] MEDS: Multivitamin/Minerals Therapeutic Tablet PO SCH (13:26)
[2017-10-22 14:32] LABS: Baso # (Auto) 0.1 th/mm3 (0.0-0.2); Baso % (Auto) 1.3 % (0.0-2.0); Eos # (Auto) 0.2 th/mm3 (0.0-0.4); Eos % (Auto) 4.6 % (0.0-4.0); Hematocrit 26.2 % (35.0-46.0); Hemoglobin 8.5 gm/dL (11.6-15.3); Lymph # (Auto) 0.8 th/mm3 (1.0-4.8); Lymph % (Auto) 20.7 % (9.0-44.0); Mean Corpuscular HGB Conc 32.3 % (32.0-36.0); Mean Corpuscular Hemoglobin 27.4 pg (27.0-34.0); Mean Corpuscular Volume 84.8 fL (80.0-100.0); Mean Platelet Volume 7.4 fL (7.0-11.0); Mono # (Auto) 0.3 th/mm3 (0.0-0.9); Mono % (Auto) 7.3 % (0.0-8.0); Neut # (Auto) 2.6 th/mm3 (1.8-7.7); Neut % (Auto) 66.1 % (16.0-70.0); Platelet Count 290 th/mm3 (150-450); Red Blood Count 3.09 mil/mm3 (4.00-5.30); Red Cell Distribution Width 23.5 % (11.6-17.2)
[2017-10-22 14:56] LABS: Anion Gap 6 meq/L (5-15); Blood Urea Nitrogen 10 mg/dL (7-18); Calcium 8.3 mg/dL (8.5-10.1); Carbon Dioxide 24.1 meq/L (21.0-32.0); Chloride 109 meq/L (98-107); Glomerular Filtration Rate Greater Than 89 mL/min (>89); Glucose,Random 111 mg/dL (74-106); Phosphorus 2.7 mg/dL (2.5-4.9); Potassium 3.4 meq/L (3.5-5.1); Sodium 139 meq/L (136-145)
[2017-10-22] MEDS ORDERED: Potassium Chloride 10 MEQ ER Capsule PO ONE (17:00)
[2017-10-22] MEDS: Morphine Inj 4 MG/ML Vial IV.PUSH PRN (17:31)
[2017-10-23] MEDS: Morphine Inj 4 MG/ML Vial IV.PUSH PRN (04:02)
--- NOTE | 2017-10-23 07:31 | ECG ---
Date Performed: 10/22/2017 Time Performed: 10:36:24 PTAGE: 67 years EKG: Sinus rhythm NORMAL ECG PREVIOUS TRACING : 06/19/2012 06.52 DOCTOR: Denisse Su Interpretating Date/Time 10/23/2017 07:29:36
[2017-10-23] MEDS: Multivitamin/Minerals Therapeutic Tablet PO SCH (08:46)
[2017-10-23] MEDS: Senna/Docusate Sodium 8.6/50 MG Tablet PO SCH (08:46)
[2017-10-23] MEDS: Folic Acid 1 MG Tablet PO SCH (08:46)
[2017-10-23 09:32] LABS: Baso % (Auto) 1.3 % (0.0-2.0); Eos # (Auto) 0.2 th/mm3 (0.0-0.4); Eos % (Auto) 6.4 % (0.0-4.0); Hemoglobin 8.5 gm/dL (11.6-15.3); Lymph # (Auto) 0.7 th/mm3 (1.0-4.8); Lymph % (Auto) 20.2 % (9.0-44.0); Mean Corpuscular HGB Conc 32.7 % (32.0-36.0); Mean Corpuscular Hemoglobin 27.8 pg (27.0-34.0); Mean Corpuscular Volume 85.3 fL (80.0-100.0); Mean Platelet Volume 7.3 fL (7.0-11.0); Mono # (Auto) 0.5 th/mm3 (0.0-0.9); Mono % (Auto) 12.6 % (0.0-8.0); Neut # (Auto) 2.2 th/mm3 (1.8-7.7); Neut % (Auto) 59.5 % (16.0-70.0); Platelet Count 287 th/mm3 (150-450); Red Blood Count 3.05 mil/mm3 (4.00-5.30); White Blood Count 3.7 th/mm3 (4.0-11.0)
--- NOTE | 2017-10-23 09:57 | P.PNGI ---
Subjective Interval history: Pt sleeping, awakened for my exam. Denies any nausea or vomiting. Tolerating liquid diet. Denies BM since EGD. Complaining of continued lower abdominal pain , although no tenderness on exam. Discussed with her recommendation for colonoscopy, states she does not want a colonoscopy or mammogram. These are tests she is not willing to do. <Cherie Veliz - Last Filed: 10/23/17 09:51> Physical Exam Vital signs: Vital Signs 10/22/17 12:43 10/22/17 13:26 10/22/17 14:37 Temperature 98.3 F 98.0 F Pulse Rate 74 72 Respiratory Rate 20 18 Blood Pressure 130/75 130/68 Pulse Oximetry 100 99 92 L 10/22/17 16:00 10/22/17 20:00 10/23/17 00:00 Temperature 98.0 F 98.2 F 98 F Pulse Rate 77 74 73 Respiratory Rate 19 19 19 Blood Pressure 113/62 127/62 129/60 Pulse Oximetry 96 95 95 10/23/17 04:00 10/23/17 08:00 Temperature 98.1 F 97.8 F Pulse Rate 79 75 Respiratory Rate 18 18 Blood Pressure 121/58 L 121/56 L Pulse Oximetry 94 L 94 L Intake & Output 10/22/17 10/23/17 10/23/17 18:59 06:59 18:59 Intake Total 2520 / 2520 Balance 2520 / 2520 Intake: IV 2049 / 2049 NS Inj 1,000 ML @ 60 mls/hr IV. 1000 / 1000 CONT .[id number] [facility] Rx#:[id number] Oral 420 / 420 Anesthesia Amount 50 / 50 Intake (Blood Product) Amt 0 / 0 Rbc As-3 Leukoreduced Unit 0 / 0 [id number] Other: # Voids 4 # Bowel Movements 0 - Constitutional no acute distress - Routine HEENT Exam Head: Present: normocephalic, atraumatic - Routine Respiratory Exam Absent: accessory muscle use - Routine Cardiovascular Exam Present: RRR - Routine Abdominal Exam Present: soft, normoactive bowel sounds. Absent: tenderness, distended - Routine Skin Exam Present: dry, warm - Routine Neurological Exam Present: alert, oriented X3 <Cherie Veliz - Last Filed: 10/23/17 09:51> Vital signs: Vital Signs 10/22/17 16:00 10/22/17 20:00 10/23/17 00:00 Temperature 98.0 F 98.2 F 98 F Pulse Rate 77 74 73 Respiratory Rate 19 19 19 Blood Pressure 113/62 127/62 129/60 Pulse Oximetry 96 95 95 10/23/17 04:00 10/23/17 08:00 10/23/17 11:06 Temperature 98.1 F 97.8 F Pulse Rate 79 75 Respiratory Rate 18 18 Blood Pressure 121/58 L 121/56 L Pulse Oximetry 94 L 94 L 95 10/23/17 12:00 Temperature 97.9 F Pulse Rate 77 Respiratory Rate 18 Blood Pressure 118/51 L Pulse Oximetry 95 Intake & Output 10/22/17 10/23/17 10/23/17 18:59 06:59 18:59 Intake Total 2520 / 2520 Balance 2520 / 2520 Intake: IV 2049 / 2049 NS Inj 1,000 ML @ 60 mls/hr IV. 1000 / 1000 CONT .[id number] [facility] Rx#:[id number] Oral 420 / 420 Anesthesia Amount 50 / 50 Intake (Blood Product) Amt 0 / 0 Rbc As-3 Leukoreduced Unit 0 / 0 [id number] Other: # Voids 4 # Bowel Movements 0 <Breanna Jennings - Last Filed: 10/23/17 15:25> Results - Labs CBC & Chem 7: 10/23/17 08:00 10/22/17 13:55 Laboratory Results - last 24 hr 10/22/17 10/22/17 10/23/17 13:55 13:55 08:00 WBC 4.0 3.7 L RBC 3.09 L 3.05 L Hgb 8.5 L 8.5 L Hct 26.2 L 26.0 L MCV 84.8 D 85.3 MCH 27.4 27.8 MCHC 32.3 32.7 RDW 23.5 H D 23.0 H Plt Count 290 287 MPV 7.4 7.3 Neut % (Auto) 66.1 59.5 Lymph % (Auto) 20.7 20.2 [place] % (Auto) 7.3 12.6 H Eos % (Auto) 4.6 H 6.4 H Baso % (Auto) 1.3 1.3 Neut # (Auto) 2.6 2.2 Lymph # (Auto) 0.8 L 0.7 L [place] # (Auto) 0.3 0.5 Eos # (Auto) 0.2 0.2 Baso # (Auto) 0.1 0.0 WBC Differential . . Differential Comment Auto diff final Auto diff final Sodium 139 Potassium 3.4 L Chloride 109 H Carbon Dioxide 24.1 Anion Gap 6 BUN 10 Creatinine 0.56 Estimated GFR Greater than 89 Random Glucose 111 H Calcium 8.3 L Phosphorus 2.7 Magnesium 2.0 - Procedures EGD <Cherie Veliz - Last Filed: 10/23/17 09:51> - Labs CBC & Chem 7: 10/23/17 08:00 10/23/17 08:00 Laboratory Results - last 24 hr 10/23/17 10/23/17 08:00 08:00 WBC 3.7 L RBC 3.05 L Hgb 8.5 L Hct 26.0 L MCV 85.3 MCH 27.8 MCHC 32.7 RDW 23.0 H Plt Count 287 MPV 7.3 Neut % (Auto) 59.5 Lymph % (Auto) 20.2 [place] % (Auto) 12.6 H Eos % (Auto) 6.4 H Baso % (Auto) 1.3 Neut # (Auto) 2.2 Lymph # (Auto) 0.7 L [place] # (Auto) 0.5 Eos # (Auto) 0.2 Baso # (Auto) 0.0 WBC Differential . Differential Comment Auto diff final Sodium 141 Potassium 3.8 Chloride 109 H Carbon Dioxide 23.7 Anion Gap 8 BUN 5 L Creatinine 0.44 L Estimated GFR Greater than 89 Random Glucose 71 L Calcium 8.5 Phosphorus 3.4 Magnesium 1.9 <Breanna Jennings - Last Filed: 10/23/17 15:25> Assessment and Plan - Plan Assessment: - Upper GIB with ETOH abuse and daily Goody powder use H/H currently 6.8/20.6 Pt reports symptoms began two night ago with multiple black, tarry stools and one episode of coffee ground emesis. Drinks 6 pack of beer a day. Takes Goody Powder daily, previous followed by pain management but stopped this months ago. Denies history of GIB. (10/23) Pt sleeping, awakened for my exam. Denies nausea, vomiting. No BM since EGD. Complaining of continued lower abdominal pain, no tenderness on exam. Discussed with her recommendations for colonoscopy, she has never had one before. States she will not get a colonoscopy or a mammogram. S/P 1 U PRBCs hgb from 6.8 to 8.5 and has remained stable overnight. Plan: Avoid NSAIDs Stop drinking ETOH Repeat EGD in 6 weeks If agreeable can have colonoscopy at this time Currently refusing colonoscopy Advance diet Protonix Our service will sign off Have pt follow up with GI after DC Pt has been seen and examined by myself and Dr. Jennings and this note is written on her behalf <Cherie Veliz - Last Filed: 10/23/17 09:51> - Plan agree with above <Breanna Jennings - Last Filed: 10/23/17 15:25>
[2017-10-23 09:59] LABS: Anion Gap 8 meq/L (5-15); Blood Urea Nitrogen 5 mg/dL (7-18); Calcium 8.5 mg/dL (8.5-10.1); Carbon Dioxide 23.7 meq/L (21.0-32.0); Chloride 109 meq/L (98-107); Glomerular Filtration Rate Greater Than 89 mL/min (>89); Glucose,Random 71 mg/dL (74-106); Magnesium 1.9 mg/dL (1.5-2.5); Potassium 3.8 meq/L (3.5-5.1); Sodium 141 meq/L (136-145)
[2017-10-23 10:00] LABS: Phosphorus 3.4 mg/dL (2.5-4.9)
--- NOTE | 2017-10-23 14:49 | P.PN ---
Subjective Interval history: Follow-up GI bleed. No further bleeding. Patient aware of EGD results continues to refuse colonoscopy. Aware she needs to stop drinking alcohol and taking aspirin. Physical Exam Vital signs: Vital Signs 10/22/17 16:00 10/22/17 20:00 10/23/17 00:00 Temperature 98.0 F 98.2 F 98 F Pulse Rate 77 74 73 Respiratory Rate 19 19 19 Blood Pressure 113/62 127/62 129/60 Pulse Oximetry 96 95 95 10/23/17 04:00 10/23/17 08:00 10/23/17 11:06 Temperature 98.1 F 97.8 F Pulse Rate 79 75 Respiratory Rate 18 18 Blood Pressure 121/58 L 121/56 L Pulse Oximetry 94 L 94 L 95 10/23/17 12:00 Temperature 97.9 F Pulse Rate 77 Respiratory Rate 18 Blood Pressure 118/51 L Pulse Oximetry 95 Intake & Output 10/22/17 10/23/17 10/23/17 18:59 06:59 18:59 Intake Total 2520 / 2520 Balance 2520 / 2520 Intake: IV 2049 / 2049 NS Inj 1,000 ML @ 60 mls/hr IV. 1000 / 1000 CONT .[id number] [facility] Rx#:[id number] Oral 420 / 420 Anesthesia Amount 50 / 50 Intake (Blood Product) Amt 0 / 0 Rbc As-3 Leukoreduced Unit 0 / 0 [id number] Other: # Voids 4 # Bowel Movements 0 Narrative: GENERAL: Middle-aged female in no acute distress. CARDIOVASCULAR: Regular rate and rhythm. No obvious murmurs to auscultation. No chest tenderness to palpation. RESPIRATORY: No obvious rhonchi or wheezing. Clear to auscultation. Breath sounds equal bilaterally. GASTROINTESTINAL: Abdomen soft, lower abdominal tenderness to palpation, nondistended. BS normal. MUSCULOSKELETAL: Extremities without clubbing, cyanosis, or edema. No obvious deformities. NEUROLOGICAL: Awake, alert and oriented x4. No focal neurologic deficits. Moving both upper and lower extremities spontaneously. Results - Labs CBC & Chem 7: 10/23/17 08:00 10/23/17 08:00 Laboratory Results - last 24 hr 10/22/17 10/23/17 10/23/17 13:55 08:00 08:00 WBC 3.7 L RBC 3.05 L Hgb 8.5 L Hct 26.0 L MCV 85.3 MCH 27.8 MCHC 32.7 RDW 23.0 H Plt Count 287 MPV 7.3 Neut % (Auto) 59.5 Lymph % (Auto) 20.2 [place] % (Auto) 12.6 H Eos % (Auto) 6.4 H Baso % (Auto) 1.3 Neut # (Auto) 2.2 Lymph # (Auto) 0.7 L [place] # (Auto) 0.5 Eos # (Auto) 0.2 Baso # (Auto) 0.0 WBC Differential . Differential Comment Auto diff final Sodium 139 141 Potassium 3.4 L 3.8 Chloride 109 H 109 H Carbon Dioxide 24.1 23.7 Anion Gap 6 8 BUN 10 5 L Creatinine 0.56 0.44 L Estimated GFR Greater than 89 Greater than 89 Random Glucose 111 H 71 L Calcium 8.3 L 8.5 Phosphorus 2.7 3.4 Magnesium 2.0 1.9 - Procedures EGD Assessment and Plan - Assessment (1) GI bleed Code(s): K92.2 - Gastrointestinal hemorrhage, unspecified Status: Acute (2) Anemia Code(s): D64.9 - Anemia, unspecified Status: Acute (3) Alcohol abuse Code(s): F10.10 - Alcohol abuse, uncomplicated Status: Acute - Plan 1. GI Bleed: black tarry stool in addition to hematemesis, likely due to combination of alcohol abuse and chronic/daily NSAID use. EGD reveals 1. Duodenitis second portion-biopsy gastritis antrum-biopsy/multiple superficial ulcers duodenal bulb ulcers, clean base-4 mm pyloric channel ulcer-1 cm-clean base esophagitis distal esophagus -biopsy 2. Retroflexed views revealed a hiatal hernia. Follow-up biopsy results. Continue PPI and antireflux mechanisms. Avoid NSAIDs. Continues to refuse colonoscopy 2. CT Abd/Pelvis w/ no acute findings, nonspecific liver lesion w/ recommendation for nonemergent MRI and chronic L1 compression fracture, images reviewed. Outpatient follow-up with PCP 3. Anemia: secondary to above, Hgb 8.9, no previous labs for comparison however presumably significantly decreased from baseline, in light of multiple episodes of hematemesis and dark stool will monitor closely. Type & Screen. Repeat Hgb/Hct, transfuse as needed for worsening anemia. Improved with transfusion. Start iron 4. Alcohol Abuse: Daily. Chronic. Drinks 6pck [place] Light daily, more during football season. High risk for withdrawal, Seizure Precautions, MVT/Thiamine/ Folate replacement, CIWA 5. DVT Prophylaxis: Pharmacologic contraindication due to GI Bleed Discharge Planning: Discharge patient to home Condition on discharge: Improved Regular Diet as tolerated Ad Rosy activity no driving Rx written: Iron. Protonix Follow-up with primary care physician and GI
[2017-10-23] MEDS ORDERED: Ferrous Sulfate 325 MG Tablet PO SCH (15:00)
[2017-10-23 21:16] VITALS: BP 118/51; PULSE 77; RESP 18; TEMP 97.9; O2SAT 95
== END 2017-10-23 14:33 | disposition home or self-care (01) ==
LOC: NEPE 18:18 → NEDA 20:08 → N07 21:12
PROVIDERS: ADMIT Internal Medicine; ATTEND Internal Medicine
PROC: PANENDO (2017-10-22 12:05)

== ENCOUNTER 2018-05-07 22:22 | Inpatient (IN) ==
[2018-05-07] MEDS ORDERED: Morphine Inj 4 MG/ML Vial IV.PUSH ONE (22:45)
[2018-05-07] MEDS ORDERED: Sod Chloride 0.9% Inj 1,000 ML IV.SIG ONE (22:45)
--- NOTE | 2018-05-07 22:58 | ED ---
HPI General Chief complaint: Dizziness Stated complaint: Nausea Time Seen by Provider: 05/07/18 22:38 History of Present Illness HPI narrative: This is a 67-year-old female who presents via EMS for evaluation of lightheadedness, headache and nausea. She reports that she began having some lightheadedness like she was going to pass out at 5:30 PM. She reports that 1 or 2 hours ago she developed a biparietal headache which she rates as 8 of 10, aching, constant, some associated nausea and vomiting. She is denying any chest pain, shortness of breath, abdominal pain, blurred vision, focal weakness, slurred speech. She does endorse drinking 1 alcoholic beverage today. Per chart review she has a history of alcoholism, hypothyroidism and hypertension, COPD. She reports that when she was young she had a history of migraines but she has not had one in multiple years. No other complaints. Related Data Previous Rx's Medication Instructions Recorded pantoprazole 40 mg PO BID #60 tab 10/22/17 thiamine HCl (vitamin B1) 100 mg PO DAILY #30 tab 10/22/17 oxycodone-acetaminophen [Percocet] 1 tab PO Q8HR PRN #12 tab 11/26/17 albuterol sulfate 1 inh INHALATION Q4-6H PRN #8.5 g 12/08/17 prednisone See Label Instructions PO PER PKG 12/08/17 DIR #21 each Allergies Allergy/AdvReac Type Severity Reaction Status Date / Time diazepam AdvReac Severe Hallucinati Verified 05/07/18 22:28 ons codeine AdvReac Hallucinati Verified 05/07/18 22:28 ons Review of Systems ROS: all other systems reviewed are negative [facility] Social History Social History Substance History: No History of Abuse Second Hand Smoke Exposure: Yes Smoking Status: Never smoker Tobacco Type: Cigarettes How Often Do You Have a Drink Containing Alcohol: Monthly or less Recent Travel in [facility] within the Last 8 Weeks: No Recent Out of Country Travel within the Last 8 Weeks: No Immunization History Tetanus Immunization: Unsure Exam Narrative Exam Narrative: GENERAL: Somewhat disheveled appearing female who is in no acute distress. SKIN: Warm and dry. HEAD: Atraumatic. Normocephalic. EYES: Pupils equal and round. No scleral icterus. No injection or drainage. ENT: No nasal bleeding or discharge. Mucous membranes pink and moist. NECK: Trachea midline. No JVD. CARDIOVASCULAR: Regular rate and rhythm. No murmur appreciated. RESPIRATORY: No accessory muscle use. Clear to auscultation. Breath sounds equal bilaterally. GASTROINTESTINAL: Abdomen soft, non-tender, nondistended. Hepatic and splenic margins not palpable. MUSCULOSKELETAL: No obvious deformities. No clubbing. No cyanosis. No edema. NEUROLOGICAL: Awake and alert. No obvious cranial nerve deficits. Motor grossly within normal limits. Normal speech. No upper or lower extremity drift. Finger to nose is intact, somewhat slow bilaterally. Course Initial Documented Vital Signs Temperature 98 F 05/07/18 22:28 Pulse Rate 78 05/07/18 22:28 Respiratory Rate 16 05/07/18 22:28 Blood Pressure 127/66 05/07/18 22:28 Pulse Oximetry 99 05/07/18 22:28 Last Documented Vital Signs Temperature 98 F 05/07/18 22:28 Pulse Rate 88 05/08/18 00:32 Respiratory Rate 16 05/08/18 00:32 Blood Pressure 130/65 05/08/18 00:32 Pulse Oximetry 95 05/08/18 00:32 Medical Decision Making TALHA Attestation TALHA supervised visit: Yes Attestation: I, Dr. Flannery, have reviewed the advance practice practitioner's documentation and am in agreement, met with the patient face to face, made the diagnosis, and the medical decision making was done by me. *My assessment and Findings: 67 yo F arrives with dizzienss and headache. Morphine and zofran given upon arrival conferred no benefit. Compazine, benadryl lead to resolution of cephalgia. Pt dizziness, described main as lightheadedness has not improved. Pt attempted ambulation in the ED three occasions, once to the bathroom requiring continuous assist and use of the wall rail, a second time with the undersigned requiring full assist taking approximately 4 steps before seating herself due to unsteadiness, and a third time approximately 1 hour later again unable to ambulate more than a few steps due to unsteady gait. The Hb is stable at 8.2 with normal WBC and essentially unremarkable chemistry. Tn < 0.02. EKG sinus, rate 74, normal axis/intervals. CT head normal. Pt reports drinking most days. Pt reports having a walker at home which she does not typically use. Pt lives alone. Pt states gait unsteadiness is chronic in nature however has never been as severe. Call to [facility] at 301AM. d/w Dr Crawley for [facility] Narrative Medical decision making narrative: This is a 67-year-old female who presents with lightheadedness, nausea and vomiting and biparietal headache. The lightheadedness started at 5:30 PM. The headache started 1 hour prior to arrival. On examination she has no focal neurologic deficits, somewhat slow to answer questions, appears to be uncomfortable. She was given IV fluids, morphine and Zofran. Lab work, CT brain, EKG were obtained. Patient's lab work and imaging studies are reassuring. CT the brain reveals no significant abnormalities. Her headache started 1 hour prior to arrival and the sensitivity will be quite high for a subarachnoid hemorrhage. Her headache and lightheadedness are mildly improved after the initial medication however they still persist. Additional analgesia has been ordered. Medical Screen Exam Complete: Yes Emergency Medical Condition: Yes Differential Diagnosis Differential Diagnosis: Migraine, tension headache, electrolyte abnormality, dehydration, vertigo, subarachnoid hemorrhage Lab Data Result diagrams: 05/07/18 22:53 05/07/18 22:53 Lab Results 05/07/18 05/07/18 05/07/18 Range/Units 22:53 22:53 22:53 WBC 5.4 (4.0-11.0) th/mm3 RBC 3.58 L (4.00-5.30) mil/mm3 Hgb 8.2 L (11.6-15.3) gm/dL Hct 24.6 L (35.0-46.0) % MCV 68.8 L (80.0-100.0) fL MCH 22.9 L (27.0-34.0) pg MCHC 33.3 (32.0-36.0) % RDW 19.4 H (11.6-17.2) % Plt Count 428 (150-450) th/mm3 MPV 6.8 L (7.0-11.0) fL Neut % (Auto) 62.7 (16.0-70.0) % Lymph % (Auto) 23.9 (9.0-44.0) % [place] % (Auto) 8.7 H (0.0-8.0) % Eos % (Auto) 3.7 (0.0-4.0) % Baso % (Auto) 1.0 (0.0-2.0) % Neut # (Auto) 3.4 (1.8-7.7) th/mm3 Lymph # (Auto) 1.3 (1.0-4.8) th/mm3 [place] # (Auto) 0.5 (0.0-0.9) th/mm3 Eos # (Auto) 0.2 (0.0-0.4) th/mm3 Baso # (Auto) 0.1 (0.0-0.2) th/mm3 WBC Differential . Differential Comment Auto diff final Sodium 133 L (136-145) meq/L Potassium 3.8 (3.5-5.1) meq/L Chloride 100 (98-107) meq/L Carbon Dioxide 25.6 (21.0-32.0) meq/L Anion Gap 7 (5-15) meq/L BUN 6 L (7-18) mg/dL Creatinine 0.66 (0.50-1.00) mg/dL Estimated GFR 89 (>89) mL/min Random Glucose 93 (74-106) mg/dL Calcium 8.4 L (8.5-10.1) mg/dL Magnesium 2.2 (1.5-2.5) mg/dL Total Creatine Kinase 36 (26-192) U/L Troponin I Less than 0.02 L (0.02-0.05) ng/mL Serum Alcohol Less than 3 (0-5) mg/dL Imaging Data Radiologist's impression: Head CT 05/07/18 22:45 CONCLUSION: 1. Mild chronic sinusitis in the right maxillary antra. 2. Otherwise negative. . . Discharge Plan Discharge Disposition Patient Disposition: ED Admit(ED Internal Use Only) Discharge Order Discharge Orders: ED Use Only Admit Order (Routine); Ordered 05/08/18 Ordered By: Mykel Flannery Physicians Team ED Provider: Mykel Flannery ED Midlevel Provider: Damon Lomeli Primary Care Provider: UNKNOWN, Attending Provider: Ileana Crawley Status ED Status: Admitted Observation Patient
[2018-05-07 23:09] LABS: Baso # (Auto) 0.1 th/mm3 (0.0-0.2); Eos # (Auto) 0.2 th/mm3 (0.0-0.4); Eos % (Auto) 3.7 % (0.0-4.0); Hematocrit 24.6 % (35.0-46.0); Hemoglobin 8.2 gm/dL (11.6-15.3); Lymph # (Auto) 1.3 th/mm3 (1.0-4.8); Lymph % (Auto) 23.9 % (9.0-44.0); Mean Corpuscular HGB Conc 33.3 % (32.0-36.0); Mean Corpuscular Hemoglobin 22.9 pg (27.0-34.0); Mean Corpuscular Volume 68.8 fL (80.0-100.0); Mean Platelet Volume 6.8 fL (7.0-11.0); Mono # (Auto) 0.5 th/mm3 (0.0-0.9); Mono % (Auto) 8.7 % (0.0-8.0); Neut # (Auto) 3.4 th/mm3 (1.8-7.7); Neut % (Auto) 62.7 % (16.0-70.0); Platelet Count 428 th/mm3 (150-450); Red Blood Count 3.58 mil/mm3 (4.00-5.30); Red Cell Distribution Width 19.4 % (11.6-17.2); White Blood Count 5.4 th/mm3 (4.0-11.0)
[2018-05-07 23:30] LABS: Anion Gap 7 meq/L (5-15); Blood Urea Nitrogen 6 mg/dL (7-18); Calcium 8.4 mg/dL (8.5-10.1); Carbon Dioxide 25.6 meq/L (21.0-32.0); Chloride 100 meq/L (98-107); Glomerular Filtration Rate 89 mL/min (>89); Glucose,Random 93 mg/dL (74-106); Magnesium 2.2 mg/dL (1.5-2.5); Potassium 3.8 meq/L (3.5-5.1); Sodium 133 meq/L (136-145)
[2018-05-07 23:38] LABS: Creatine Kinase 36 U/L (26-192)
--- NOTE | 2018-05-07 23:47 | CT ---
EXAM DATE: 05/07/2018 11:30 PM EST AGE/SEX: 67 years / Female INDICATIONS: Headache. CLINICAL DATA: This is the patient's initial encounter. Patient reports that signs and symptoms have been present for 1 day and indicates a pain score of 8/10. MEDICAL/SURGICAL HISTORY: Chronic obstructive pulmonary disease. Hypertension. Gastrointestinal b leed. Anemia, ETOH abuse None. RADIATION DOSE: 34.96 CTDI (mGy) COMPARISON: No prior exams available for comparison. TECHNIQUE: CT of the head without contrast. Using automated exposure control and adjustment of the mA and/or kV according to patient size, radiation dose was kept as low as reasonably achievable to ob tain optimal diagnostic quality images. DICOM format image data is available electronically for revi ew and comparison. FINDINGS: Cerebrum: The ventricles are normal for age. No evidence of midline shift, mass lesion, hemorrhage or acute infarction. No extraaxial fluid collections are seen. Posterior Fossa: The cerebellum and brainstem are intact. The 4th ventricle is midline. The cerebe llopontine angle is unremarkable. Extracranial: The visualized portion of the orbits is intact. There is some mucoperiosteal thickenin g within the right maxillary antra.. Skull: The calvaria is intact. No evidence of skull fracture. CONCLUSION: 1. Mild chronic sinusitis in the right maxillary antra. 2. Otherwise negative. . . Electronically signed by: Wander Wolf MD Board Certified Radiologist 05/07/2018 11:46 PM EST
[2018-05-07] MEDS ORDERED: Acetaminophen 325 MG Tablet PO ONE (23:49)
[2018-05-08] MEDS ORDERED: LORazepam 1 MG Tablet PO PRN (03:20)
[2018-05-08] MEDS ORDERED: Haloperidol Inj 5 MG/ML Ampul IV.PUSH PRN (03:20)
[2018-05-08 05:25] LABS: Baso % (Auto) 0.7 % (0.0-2.0); Eos # (Auto) 0.1 th/mm3 (0.0-0.4); Eos % (Auto) 2.5 % (0.0-4.0); Hematocrit 24.9 % (35.0-46.0); Lymph # (Auto) 1.1 th/mm3 (1.0-4.8); Lymph % (Auto) 19.9 % (9.0-44.0); Mean Corpuscular Hemoglobin 22.7 pg (27.0-34.0); Mean Corpuscular Volume 70.9 fL (80.0-100.0); Mean Platelet Volume 6.8 fL (7.0-11.0); Mono # (Auto) 0.4 th/mm3 (0.0-0.9); Mono % (Auto) 7.2 % (0.0-8.0); Neut # (Auto) 3.9 th/mm3 (1.8-7.7); Neut % (Auto) 69.7 % (16.0-70.0); Platelet Count 378 th/mm3 (150-450); Red Blood Count 3.52 mil/mm3 (4.00-5.30); Red Cell Distribution Width 19.2 % (11.6-17.2); White Blood Count 5.6 th/mm3 (4.0-11.0)
[2018-05-08 05:49] LABS: Albumin 3.1 g/dL (3.4-5.0); Anion Gap 7 meq/L (5-15); Aspartate Aminotransferase 10 U/L (15-37); Blood Urea Nitrogen 6 mg/dL (7-18); Calcium 8.2 mg/dL (8.5-10.1); Chloride 101 meq/L (98-107); Glomerular Filtration Rate Greater Than 89 mL/min (>89); Glucose,Random 102 mg/dL (74-106); Sodium 133 meq/L (136-145)
[2018-05-08 05:52] LABS: Alanine Aminotransferase 9 U/L (10-53); Alkaline Phosphatase 74 U/L (45-117); Total Protein 6.3 g/dL (6.4-8.2)
[2018-05-08] MEDS: Folic Acid 1 MG Tablet PO SCH (10:23)
[2018-05-08] MEDS: Multivitamin/Minerals Therapeutic Tablet PO SCH (10:23)
--- NOTE | 2018-05-08 14:18 | P.HPIM ---
History of Present Illness Primary Care Physician: UNKNOWN Chief Complaint: lightheadedness, nausea and headache History of Present Illness: This is a 67-year-old female with history of hypertension, hypothyroidism, alcoholism, COPD and migraines who presented emergency department with lightheadedness, headache and nausea. She was apparently well until yesterday around 530 PM when she started having severe lightheadedness that made her unable to walk associated with biparietal headache , about 8/10, constant, associated with nausea and vomiting. She denies any chest pain, shortness of breath, abdominal pain, focal weakness, slurred speech , numbness or rhythmic movements of extremities. She continues to smoke, drinks about a sixpack every day. At the emergency department, she was unable to walk without assistance or holding wall rails because of her lightheadedness. Presently, her lightheadedness is better but she still unable to ambulate by herself. Headache biparietal is better, but 5/10. There is also occasional ear pain and tinnitus. She also complains of mild sinus congestion and ear congestion with decreased hearing bilaterally. No fever or chills. Past medical history COPD Hypertension Tobacco abuse Hypothyroidism Past surgical history Hysterectomy Bilateral knee surgery Ankle surgery Appendectomy Family medical history Mother of cancer Father of aneurysm Social history Current smoker Drinks a sixpack of beer every day. Inpatient Certification Inpatient Certification: I certify that the inpatient services were ordered in accordance with Medicare regulations governing the order. This includes certification that hospital inpatient services are reasonable and necessary and in the case of services not specified as inpatient-only under 42 CFR 419.22(n), that they are appropriately provided as inpatient services in accordance to with the 2-midnight benchmark under 43 CFR 412.3(e) Estimated Total Length of Stay (Days): 3 Plans for Post Hospital Care: Not yet determined Review of Systems Review of Systems: all other systems reviewed are negative [facility] Social History Social History Substance History: No History of Abuse Second Hand Smoke Exposure: Yes Smoking Status: Never smoker Tobacco Type: Cigarettes How Often Do You Have a Drink Containing Alcohol: Monthly or less Recent Travel in [place] within the Last 8 Weeks: No Recent Out of Country Travel within the Last 8 Weeks: No Immunization History Tetanus Immunization: Unsure Medications and Allergies Allergies Allergy/AdvReac Type Severity Reaction Status Date / Time diazepam AdvReac Severe Hallucinati Verified 05/07/18 22:28 ons codeine AdvReac Hallucinati Verified 05/07/18 22:28 ons Active Medications: Active Medications Flumazenil (Romazicon Inj) 0.2 mg IV.PUSH Q1M PRN PRN Reason: OVERSEDATION Folic Acid (Folic Acid) 1 mg PO DAILY [facility] Stop: 05/13/18 08:59 Last Admin: 05/08/18 10:23 Dose: 1 mg Haloperidol Lactate (Haldol Inj) 1 mg IV.PUSH Q15M PRN PRN Reason: for severe agitation Lorazepam (Ativan Inj) 1 mg IV.PUSH Q4H PRN PRN Reason: for CIWA 8-10 Lorazepam (Ativan Inj) 2 mg IV.PUSH Q15M PRN PRN Reason: for CIWA > 20 Lorazepam (Ativan Inj) 2 mg IV.PUSH Q1H PRN PRN Reason: for CIWA 15-20 Lorazepam (Ativan Inj) 2 mg IV.PUSH Q2H PRN PRN Reason: for CIWA 11-14 Lorazepam (Ativan) 1 mg PO Q4H PRN PRN Reason: for CIWA 8-10 Lorazepam (Ativan) 2 mg PO Q2H PRN PRN Reason: for CIWA 11-14 Meclizine HCl (Antivert) 25 mg PO Q6H PRN PRN Reason: DIZZINESS Multivitamins/Minerals (Theragran-M) 1 tab PO DAILY [facility] Stop: 05/13/18 08:59 Last Admin: 05/08/18 10:23 Dose: 1 tab Ondansetron HCl (Zofran Inj) 4 mg IV.PUSH Q6H PRN PRN Reason: NAUSEA OR VOMITING Sodium Chloride (Ns Flush) 2 ml IV.FLUSH PRN PRN PRN Reason: FLUSH AFTER USING IV ACCESS Thiamine HCl (Vitamin B1) 100 mg PO DAILY [facility] Last Admin: 05/08/18 10:23 Dose: 100 mg Physical Exam Vital signs: Vital Signs 05/07/18 22:28 05/08/18 00:32 05/08/18 03:21 Temperature 98 F 98 F Pulse Rate 78 88 74 Respiratory Rate 16 16 18 Blood Pressure 127/66 130/65 147/73 H Pulse Oximetry 99 95 98 05/08/18 04:00 05/08/18 06:24 05/08/18 07:00 Temperature Pulse Rate 78 78 64 Respiratory Rate 16 16 Blood Pressure 117/67 119/56 L Pulse Oximetry 99 98 05/08/18 07:12 05/08/18 09:00 05/08/18 11:30 Temperature 97.6 F Pulse Rate 64 68 75 Respiratory Rate 16 20 Blood Pressure 119/56 L 130/74 125/69 Pulse Oximetry 95 99 100 Intake & Output 05/07/18 05/08/18 05/08/18 18:59 06:59 18:59 Intake Total 1000 / 1000 Output Total 250 / 250 Balance 750 / 750 Weight 72.575 kg Intake: IV 1000 / 1000 NS Inj 1,000 ML @ Wide Open IV. 1000 / 1000 SIG BOLUS ONE Rx#:[id number] Output: Urine 250 / 250 Narrative: Not in distress Pupils equal round reactive, pink conjunctival, bilateral ears full of wax, cannot visualize tympanic membrane, cone of light cannot be seen, no nystagmus, negative Drummond-Hallpike maneuver. Grossly hard of hearing. Tongue is midline No JVD Regular rate and rhythm, no murmurs Clear breath sounds bilaterally Abdomen soft nontender Alert awake and oriented x3, no cranial nerve deficits, tongue is midline, no facial asymmetry, muscle strength testing 5/5 all 4 extremities, DTRs deferred. Digit minimi negative. Results Labs CBC & Chem 7: 05/08/18 04:15 05/08/18 04:[address] 05/07/18 22:45 CONCLUSION: 1. Mild chronic sinusitis in the right maxillary antra. 2. Otherwise negative. . . Caprini VTE Risk Assessment Caprini VTE Risk Assessment: Moderate/High Risk (score >= 2) Caprini Risk Assessment Model: Point Value = 1 Point Value = 2 Point Value = 3 Point Value = 5 Age 41-60 Minor surgery BMI > 25 kg/m2 Swollen legs Varicose veins or History of unexplained or recurrent spontaneous Oral contraceptives or hormone replacement Sepsis (< 1 month) Serious lung disease, including pneumonia (< 1 month) Abnormal pulmonary function Acute myocardial infarction Congestive heart failure (< 1 month) History of inflammatory bowel disease Medical patient at bed rest Age 61-74 Arthroscopic surgery Major open surgery (> 45 min) Laparoscopic surgery (> 45 min) Malignancy Confined to bed (> 72 hours) Immobilizing plaster cast Central venous access Age >= 75 History of VTE Family history of VTE Factor V Leiden Prothrombin [id number] Lupus anticoagulant Anticardiolipin antibodies Elevated serum homocysteine Heparin-induced thrombocytopenia Other congenital or acquired thrombophilia Stroke (< 1 month) Elective arthroplasty Hip, pelvis, or leg fracture Acute spinal cord injury (< 1 month) Prophylaxis Regimen: Total Risk Factor Score Risk Level Prophylaxis Regimen 0-1 Low Early ambulation 2 Moderate Order ONE of the following: *Sequential Compression Device (SCD) *Heparin 5000 units SQ BID 3-4 Higher Order ONE of the following medications: *Heparin 5000 units SQ TID *Enoxaparin/Lovenox 40 mg SQ daily (WT < 150 kg, CrCl > 30 mL/min) *Enoxaparin/Lovenox 30 mg SQ daily (WT < 150 kg, CrCl > 10-29 mL/min) *Enoxaparin/Lovenox 30 mg SQ BID (WT < 150 kg, CrCl > 30 mL/min) AND/OR *Sequential Compression Device (SCD) 5 or more Highest Order ONE of the following medications: *Heparin 5000 units SQ TID (Preferred with Epidurals) *Enoxaparin/Lovenox 40 mg SQ daily (WT < 150 kg, CrCl > 30 mL/min) *Enoxaparin/Lovenox 30 mg SQ daily (WT < 150 kg, CrCl > 10-29 mL/min) *Enoxaparin/Lovenox 30 mg SQ BID (WT < 150 kg, CrCl > 30 mL/min) AND *Sequential Compression Device (SCD) Assessment and Plan Plan This is a 67-year-old female with history of hypertension, COPD and migraines presenting with lightheadedness, headache and nausea Lightheadedness, headache and nausea likely secondary to labyrinthitis versus vestibular neuritis versus complex migraine versus benign paroxysmal positional vertigo- history not consistent with vertigo. Drummond-Hallpike maneuver negative, no nystagmus. Per patient, she has decreased hearing sensation, tinnitus, mild ear pain and/or headache. Check MRI, EEG, consult neurology, start meclizine, Zofran as needed, start steroids. Check CBC, CMP at AM COPD, not in exacerbation-DuoNeb's as needed Tobacco abuse-counseled, patient advised but refused to stop smoking for now. Alcohol abuse-counseled, [facility] protocol DVT prophylaxis: SCDs Patient unable to walk because of lightheadedness, consult physical therapy.
[2018-05-08] MEDS: predniSONE 20 MG Tablet PO SCH (17:11)
--- NOTE | 2018-05-08 20:32 | MR ---
EXAM DATE: 05/08/2018 8:27 PM EST AGE/SEX: 67 years / Female INDICATIONS: Dizziness. Headaches, nausea, vomit ting, ataxia. CLINICAL DATA: This is the patient's initial encounter. Patient reports that signs and symptoms have been present for 1 day and indicates a pain score of 8/10. MEDICAL/SURGICAL HISTORY: Chronic obstructive pulmonary disease. HTN Hysterectomy. COMPARISON: [facility] [place], CT HEAD W/O CONTRAST, 05/07/2018.. . TECHNIQUE: Multiplanar, multisequence examination of the brain was performed without contrast. FINDINGS: Cerebrum: The ventricles are normal for age. No evidence of midline shift, mass lesion, hemorrhage or acute infarction. No extraaxial fluid collections are seen. The pituitary gland and suprasellar cistern are normal in configuration. White Matter: Scattered small foci of high FLAIR signal abnormality involving the subcortical and pe riventricular white matter both cerebral hemispheres. No involvement of the corpus callosum or subcor tical U fibers observed.. Posterior Fossa: The cerebellum and brainstem are intact. The 4th ventricle is midline. The cerebel lopontine angle is unremarkable. The cerebellar tonsils are normal in position. Diffusion Imaging: No focal areas of restricted diffusion are seen. No evidence of acute infarction . Extracranial: The visualized portions of the orbits are unremarkable. Mild mucosal thickening witho ut air-fluid level involving the right maxillary sinus. The remaining paranasal sinuses and mastoid a ir cells are clear. CONCLUSION: 1. The patient refused IV contrast. 2. No acute intracranial abnormality. 3. Nonspecific white matter signal abnormality likely relating to chronic small vessel ischemic wayne ge. Electronically signed by: Tal Whelan MD Board Certified Radiologist 05/08/2018 8:31 PM EST
[2018-05-08 21:41] VITALS: RESP 18
--- NOTE | 2018-05-08 21:54 | MG ---
cc: Marcos Viramontes MD, PhD TEST NUMBER: [id number]. TECHNIQUE: 16-channel EEG. DESCRIPTION: The background rhythm reveals symmetrical alpha activity, frequency 8 Hz, amplitude 20 microvolts. There is a fair amount of muscle artifact. There are no epileptiform discharges. No new neurologic features. Photic results able to get a response. INTERPRETATION: Normal EEG. Marcos Viramontes MD, PhD WILLIAM/rm/do , 09:16 PM , 09:19 PM
--- NOTE | 2018-05-08 22:48 | ECG ---
Date Performed: 05/07/2018 Time Performed: 22:40:22 PTAGE: 67 years EKG: Sinus rhythm NORMAL ECG PREVIOUS TRACING : 12/07/2017 23.47 DOCTOR: Jaya Canada Interpretating Date/Time 05/08/2018 22:45:37
[2018-05-09 07:39] LABS: Alanine Aminotransferase 8 U/L (10-53); Albumin 3.2 g/dL (3.4-5.0); Anion Gap 6 meq/L (5-15); Aspartate Aminotransferase 9 U/L (15-37); Blood Urea Nitrogen 8 mg/dL (7-18); Calcium 8.4 mg/dL (8.5-10.1); Carbon Dioxide 26.7 meq/L (21.0-32.0); Chloride 102 meq/L (98-107); Glomerular Filtration Rate Greater Than 89 mL/min (>89); Glucose,Random 113 mg/dL (74-106); Sodium 135 meq/L (136-145)
[2018-05-09 07:41] LABS: Alkaline Phosphatase 73 U/L (45-117); Total Protein 6.4 g/dL (6.4-8.2)
[2018-05-09 08:28] VITALS: BP 140/99; TEMP 97.9; O2SAT 98
[2018-05-09] MEDS ORDERED: Enoxaparin Inj 40 MG/0.4 ML Syringe SQ SCH (09:00)
[2018-05-09] MEDS: predniSONE 20 MG Tablet PO SCH (09:34)
[2018-05-09] MEDS: Folic Acid 1 MG Tablet PO SCH (09:35)
[2018-05-09] MEDS: Multivitamin/Minerals Therapeutic Tablet PO SCH (09:35)
--- NOTE | 2018-05-09 10:30 | P.PNIM ---
Subjective Interval history: Follow-up for lightheadedness, headache, suspected labyrinthitis. Patient reports feeling much better today. She ambulated with physical therapy, without difficulty. She denies any further headache or lightheadedness. States she has chronic issues with her sinuses and sometimes feel as though her ears are full, but she states this improved over the past few days. Denies any chest pain, palpitations, shortness of breath. She wants to go home. She has not yet seen neurology, discussed to follow-up as outpatient with neurology or ENT if symptoms return. Patient verbalized understanding. Physical Exam Vital signs: Vital Signs 05/08/18 11:30 05/08/18 14:15 05/08/18 16:00 Temperature 97.6 F 97.8 F 97.7 F Pulse Rate 75 78 79 Respiratory Rate 20 20 16 Blood Pressure 125/69 149/70 H 121/58 L Pulse Oximetry 100 100 98 05/08/18 21:00 05/08/18 21:51 05/09/18 01:00 Temperature 98.1 F 98.6 F Pulse Rate 91 H 86 97 H Respiratory Rate 18 18 Blood Pressure 163/83 H 152/74 H Pulse Oximetry 93 L 95 05/09/18 08:00 Temperature 97.9 F Pulse Rate 79 Respiratory Rate 18 Blood Pressure 140/99 H Pulse Oximetry 98 Intake & Output 05/08/18 05/09/18 05/09/18 18:59 06:59 18:59 Weight 54 kg Other: Weight On Admission 54 kg Narrative: GENERAL: Well-nourished, well-developed pleasant female patient in [facility]. Seen ambulating the hallway, then sitting upright on side of bed eating breakfast. SKIN: Warm and dry. No rash. HEENT: Normocephalic. Atraumatic. Pupils equal and round. Mucous membranes pink and moist. CARDIOVASCULAR: Regular rate and rhythm. No murmur appreciated. RESPIRATORY: No accessory muscle use. Clear to auscultation. Breath sounds equal bilaterally. GASTROINTESTINAL: Abdomen soft, non-tender, nondistended. Normoactive bowel sounds x4. MUSCULOSKELETAL: No obvious deformities. Extremities without clubbing, cyanosis , or edema. NEUROLOGICAL: Awake and alert. No obvious cranial nerve deficits. Moving all extremities spontaneously. Normal speech. Results Labs CBC & Chem 7: 05/08/18 04:15 05/09/18 06:20 Imaging Imaging: Impressions Head MRI 05/08/18 00:00 CONCLUSION: 1. The patient refused IV contrast. 2. No acute intracranial abnormality. 3. Nonspecific white matter signal abnormality likely relating to chronic small vessel ischemic change. Assessment and Plan Plan 67-year-old female with history of hypertension, COPD and migraines presenting with lightheadedness, headache and nausea Lightheadedness, headache, nausea: suspect secondary to labyrinthitis vs BPPV, less likely vestibular neuritis versus complex migraine -Mariana-Hallpike maneuver negative, no nystagmus. -Imaging studies including Head CT and Brain MRI unremarkable -EEG negative -Trial of meclizine prn, Zofran as needed -PT recommending [facility], case management consulted -Consulted neurology, likely BPPV, recommended meclizine prn, cleared for discharge COPD: not in exacerbation -DuoNeb's as needed Tobacco abuse: chronic -counseled on cessation -patient has no plans to quit Alcohol abuse: chronic -counseled -[facility] protocol -no signs of withdrawal at this time DVT prophylaxis: SCDs Discharge Planning: Discharge patient to home with [facility] Condition on discharge: Stable Regular Diet as tolerated Ad Rosy activity Rx written: meclizine prn, flonase daily Follow-up with primary care physician, neurology, ENT Attending Attestation patient was seen and examined. looks comfortable. her lightheadedness has much improved and now wants to go home. MRI cha with no acute abnormality. patient will be discharged home with f/u with her pcp. Progress Note: Quality VTE Deep Vein Thrombosis/Pulmonary Embolism Present on Admission: No
--- NOTE | 2018-05-09 10:58 | P.DCO ---
Diagnosis (1) Unsteady gait: Status: Acute (2) Anemia: Status: Acute (3) COPD (chronic obstructive pulmonary disease): Status: Acute (4) Hypertension: Status: Acute Physical Therapy Order: Evaluate and treat, Improve ambulation and Strength and gait training Home Health Nursing Order: Medical education and Nursing assessment with vital signs Case Management Consult Case Management Consult-Home Health: Yes I have seen patient Apoorva Cisneros on 05/09/18. My clinical findings support the need for the requested home health care services because: Deconditioned with increased weakness and High risk of falls I certify that my clinical findings support that this patient is homebound because: Unsteady gait/balance and Unsafe to leave home unassisted _ (1) Anemia Qualifiers: Anemia type: Iron deficiency anemia type: Vitamin B12 deficiency anemia type: Folate deficiency anemia type: Bone marrow failure anemia type: Hemolytic anemia type: Other causes of anemia: Chronic kidney disease stage :
--- NOTE | 2018-05-09 12:26 | MB ---
cc: Marcos Viramontes MD, PhD DATE: 05/09/2018 REASON FOR CONSULTATION: Vertigo. HISTORY OF PRESENT ILLNESS: This patient is a very nice, 67-year-old woman who states she had sudden onset of vertigo 2 nights ago, which is a spinning feeling. She also had ringing in the ears. It is worse if she turns her head, she had a biparietal headache as well. Feels much better today with improved headache and improved vertigo. PAST MEDICAL HISTORY: COPD, hypertension. CURRENT MEDICATIONS: 1. DuoNeb. 2. Lovenox subcutaneously 40 mg daily. 3. Romazicon p.r.n. 4. Folic acid. 5. Haldol p.r.n. 6. Ativan p.r.n. 7. Antivert 25 mg p.r.n. dizziness. 8. Zofran p.r.n. 9. Deltasone 60 mg daily. 10. Vitamin B1. NEUROLOGICAL EXAMINATION: VITAL SIGNS: Her blood pressure is 140/99, pulse of 9, respirations 18, temperature 97 degrees. NEUROLOGIC: Higher cortical functions normal. Cranial nerves are intact. The extraocular movements are normal with no nystagmus. On motor exam, there is 5/5 strength of all groups in both upper and lower extremities. There is no drift. Fine motor skills was normal. Reflexes are symmetric. Cerebellar testing is normal with no dysmetria. DIAGNOSTIC DATA: MRI of the brain, noncontrast is normal. No evidence of any acute infarction. CT scan of the brain, mild sinusitis in the right maxillary atria, otherwise normal. IMPRESSION: Benign positional vertigo. RECOMMENDATIONS: Meclizine 25 mg as needed. Okay from neuro standpoint for discharge home. Please have the patient follow up with me in 2-3 weeks. Marcos Viramontes MD, PhD WILLIAM/sb , 12:15 PM , 12:20 PM
[2018-05-09 14:15] VITALS: PULSE 77
== END 2018-05-09 15:51 | disposition home health service (06) | DRG 149 ==
LOC: NEPE 22:22 → NEDA 22:22 → OBSVTOIN 05-08 03:20 → NEDA 05-08 13:01 → NEPHCDU 05-08 14:27
PROVIDERS: ADMIT Internal Medicine; ATTEND Internal Medicine
DX: H93.19 Tinnitus, unspecified ear; E03.9 Hypothyroidism, unspecified; J44.9 Chronic obstructive pulmonary disease, unspecified; Y90.0 Blood alcohol level of less than 20 mg/100 ml; D64.9 Anemia, unspecified; R11.2 Nausea with vomiting, unspecified; H81.10 Benign paroxysmal vertigo, unspecified ear; H91.93 Unspecified hearing loss, bilateral; F10.10 Alcohol abuse, uncomplicated; H92.09 Otalgia, unspecified ear; J32.0 Chronic maxillary sinusitis; Z88.5 Allergy status to narcotic agent; I10 Essential (primary) hypertension; F17.210 Nicotine dependence, cigarettes, uncomplicated
CPT/HCPCS: 70450; 70551; 80048; 80053; 80307; 82550; 83735; 84484; 85025; 90761; 90774; 90775; 90784; 93005; 95819; 96361; 96374; 96375; 97162; 99285; C8952; J0780; J1200; J1650; J2060; J2270; J2405; J7030; J7506; J7512